=== PATIENT | male | born 1960 | race Caucasian/White ===

== ENCOUNTER 2019-02-09 13:38 | Inpatient (IN) | payer BC, MEDICAID ==
--- NOTE | 2019-02-09 14:16 | ER Document Report ---
ED Medical Screen (RME) - General Stated Complaint: FLANK PAIN/SHORTNESS OF BREATH Time Seen by Provider: 02/09/19 14:08 Mode of Arrival: Ambulatory Information source: Patient Notes: 58-year-old male with history of COPD [place] stents presents emergency department with right upper quad abdominal pain that is radiating to his right flank for the past 2 weeks. Also reports he is been coughing some green sputum. Reports he coughs so hard that he vomits afterwards. Reports he has home oxygen at 1-1 and half liters per minute. Did not bring his oxygen with him. Patient is visiting from [place]. Also reports that when he voids first thing in the morning it is bright red. I have greeted and performed a rapid initial assessment of this patient. A comprehensive ED assessment and evaluation of the patient, analysis of test results and completion of the medical decision making process will be conducted by additional ED providers. Dictation of this chart was performed using voice recognition software; ther efore, there may be some unintended grammatical errors. TRAVEL OUTSIDE OF THE [place] IN LAST 30 DAYS: No - Related Data Allergies/Adverse Reactions: Penicillins Allergy (Verified 02/09/19 14:11) Physical Exam - Vital signs Vitals: Temp Pulse Resp BP Pulse Ox 97.1 F 71 18 108/70 92 02/09/19 13:40 02/09/19 13:40 02/09/19 13:40 02/09/19 13:40 02/09/19 13:40 Course - Vital Signs Vital signs: Temp Pulse Resp BP Pulse Ox 97.1 F 71 18 108/70 92 02/09/19 13:40 02/09/19 13:40 02/09/19 13:40 02/09/19 13:40 02/09/19 13:40
[2019-02-09 14:30] LABS: APPEARANCE,URINE CLEAR; BILIRUBIN,URINE NEGATIVE (NEGATIVE); COLOR,URINE STRAW; GLUCOSE, URINE NEGATIVE (NEGATIVE); KETONES,URINE NEGATIVE (NEGATIVE); LEUKOCYTE ESTERASE,URINE NEGATIVE (NEGATIVE); NITRITE,URINE NEGATIVE (NEGATIVE); PROTEIN,URINE NEGATIVE (NEGATIVE); URINE SPECIFIC GRAVITY 1.002; UROBILINOGEN,URINE NEGATIVE mg/dL (<2.0)
[2019-02-09 14:51] LABS: ABSOLUTE BASOPHILS # (AUTO) 0.1 10^3/uL (0.0-0.2); ABSOLUTE EOSINOPHILS # (AUTO) 0.1 10^3/uL (0.0-0.6); ABSOLUTE LYMPHOCYTES (AUTO) 0.7 10^3/uL (0.5-4.7); ABSOLUTE MONOCYTES (AUTO) 1.1 10^3/uL (0.1-1.4); ABSOLUTE NEUT (AUTO) 5.1 10^3/uL (1.7-8.2); BASOPHILS % (AUTO) 1.1 % (0-2); EOSINOPHILS % (AUTO) 0.8 % (0-6); HEMATOCRIT 34.7 % (37.9-51.0); HEMOGLOBIN 11.7 g/dL (13.5-17.0); LYMPHOCYTES % (AUTO) 10.6 % (13-45); MEAN CORPUSCULAR HEMOGLOBIN 30.3 pg (27.0-33.4); MEAN CORPUSCULAR HGB CONC 33.8 g/dL (32.0-36.0); MEAN CORPUSCULAR VOLUME 90 fl (80-97); MONOCYTES % (AUTO) 15.5 % (3-13); PLATELET COUNT 394 10^3/uL (150-450); RED BLOOD COUNT 3.87 10^6/uL (4.35-5.55); TOTAL CELLS COUNTED % (AUTO) 100 %
[2019-02-09 15:14] LABS: ALBUMIN 2.8 g/dL (3.5-5.0); ALKALINE PHOSPHATASE 132 U/L (38-126); ANION GAP 11 (5-19); ASPARTATE AMINO TRANSFERASE 21 U/L (17-59); BILIRUBIN,DIRECT 0.2 mg/dL (0.0-0.4); BILIRUBIN,TOTAL 0.2 mg/dL (0.2-1.3); BLOOD UREA NITROGEN 8 mg/dL (7-20); CALCIUM 8.3 mg/dL (8.4-10.2); CARBON DIOXIDE 24 mmol/L (22-30); CHLORIDE 103 mmol/L (98-107); GLUCOSE 91 mg/dL (75-110); POTASSIUM 3.7 mmol/L (3.6-5.0); TOTAL PROTEIN 7.3 g/dL (6.3-8.2)
--- NOTE | 2019-02-09 15:21 | RADIOLOGY REPORT (SQ) ---
EXAM DESCRIPTION: CHEST 2 VIEWS COMPLETED DATE/TIME: 02/09/2019 3:08 pm REASON FOR STUDY: COUGH GREEN SPUTUM COMPARISON: None. EXAM PARAMETERS: NUMBER OF VIEWS: two views TECHNIQUE: Digital Frontal and Lateral radiographic views of the chest acquired. RADIATION DOSE: NA LIMITATIONS: none FINDINGS: LUNGS AND PLEURA: Air-fluid levels are present over the right lower lateral hemithorax. T his could be air-fluid levels in bullae or blebs, or along the inferior aspect of the right major fis sure. Consider respiratory isolation for tuberculosis until proven otherwise. This finding was call ed to Nay Collins in the emergency room. Extensive cavitation in the bilateral upper lobes. Mass versus infiltrate along the upper aspect of the right major fissure best shown on lateral view No gross pneumothorax or pleural effusions. MEDIASTINUM AND HILAR STRUCTURES: No masses or contour abnormalities. HEART AND VASCULAR STRUCTURES: Heart normal size. No evidence for failure. BONES: No acute findings. HARDWARE: None in the chest. OTHER: No other significant finding. IMPRESSION: Markedly abnormal chest film, with air-fluid levels over the right lateral lower hemitho rax, either in lung bullae or blebs, or possibly along the major fissure. Cavitation in the bilatera l upper lobes. Tuberculosis could not be excluded. Findings called to the emergency room practitio inderjit as above TECHNICAL DOCUMENTATION: JOB ID: [id number] [employer]- All Rights Reserved Reading location - IP/workstation name: [email or web address]
--- NOTE | 2019-02-09 16:46 | RADIOLOGY REPORT (SQ) ---
EXAM DESCRIPTION: U/S ABDOMEN COMPLETE W/O DOP COMPLETED DATE/TIME: 02/09/2019 4:26 pm REASON FOR STUDY: RUQ PAIN AND FLANK PAIN COMPARISON: None. TECHNIQUE: Dynamic and static grayscale images acquired of the abdomen and recorded on PACS. Additio nal selected color Doppler and spectral images recorded. Note: Study does not meet criteria for complete doppler/duplex scan LIMITATIONS: None. FINDINGS: PANCREAS: No masses. Visualized pancreatic duct normal caliber. LIVER: No masses. Echotexture normal. LIVER VASCULATURE: Normal directional flow of the main portal vein and hepatic veins. GALLBLADDER: 1.2 cm stone. Normal wall thickness. No pericholecystic fluid. ULTRASOUND-DETECTED KRAUS'S SIGN: Negative. INTRAHEPATIC DUCTS AND COMMON DUCT: CBD and intrahepatic ducts normal caliber. No filling defects. INFERIOR VENA CAVA: Normal flow. AORTA: No aneurysm. RIGHT KIDNEY:Normal size. Normal echogenicity. No solid or suspicious masses. No hydronephrosis. No c alcifications. LEFT KIDNEY: Normal size. Normal echogenicity. No solid or suspicious masses. No hydronephrosis. No calcifications. SPLEEN: Normal size. No solid masses. PERITONEAL AND PLEURAL SPACES: No ascites or effusions. OTHER: Bladder nonvisualized. IMPRESSION: Gallstone. No acute inflammatory changes. No free fluid. TECHNICAL DOCUMENTATION: JOB ID: [id number] [place]-72 2010 [employer]- All Rights Reserved Reading location - IP/workstation name: [email or web address]
[2019-02-09] MEDS ORDERED: IPRATROPIUM/ALBUTEROL 0.5-2.5 MG/3 ML AMPUL NEB ONE (17:07)
[2019-02-09] MEDS ORDERED: LEVOFLOXACIN 750 MG/D5W RTU 150 ML IV ONE (17:07)
[2019-02-09] MEDS ORDERED: METHYLPREDNISOLONE INJ 125 MG/2 ML SDV IV ONE (17:19)
--- NOTE | 2019-02-09 17:19 | ER Document Report ---
ED General - General Chief Complaint: Rib Pain Stated Complaint: FLANK PAIN/SHORTNESS OF BREATH Time Seen by Provider: 02/09/19 14:08 Mode of Arrival: Ambulatory TRAVEL OUTSIDE OF THE [place] IN LAST 30 DAYS: No - HPI Notes: This is a 58-year-old gentleman who presents today with a complaint of cough, congestion, dyspnea, flank pain for several weeks now. He denies any weight los s. He has had some night sweats. He denies any hemoptysis. His cough is sometimes productive of clear sputum. He describes his symptoms as mild to moderate. Patient has oxygen dependent COPD. - Related Data Allergies/Adverse Reactions: Penicillins Allergy (Verified 02/09/19 14:11) Past Medical History - General Information source: Patient - Social History Smoking Status: Current Every Day Smoker Chew tobacco use (# tins/day): No Frequency of alcohol use: Heavy Drug Abuse: None Family History: Reviewed & Not Pertinent Patient has suicidal ideation: No Patient has homicidal ideation: No Review of Systems - Review of Systems Cardiovascular: denies: Palpitations, Heart racing Respiratory: Cough, Sputum, Wheezing. denies: Hemoptysis Gastrointestinal: Abdominal pain Genitourinary: Flank pain Neurological/Psychological: denies: Weakness -: Yes All other systems reviewed and negative Physical Exam - Vital signs Vitals: Temp Pulse Resp BP Pulse Ox 97.1 F 71 18 108/70 92 02/09/19 13:40 02/09/19 13:40 02/09/19 13:40 02/09/19 13:40 02/09/19 13:40 - General General appearance: Appears well, Alert - Respiratory Respiratory status: No respiratory distress Chest status: Nontender Breath sounds: Rhonchi, Wheezing Chest palpation: Normal - Cardiovascular Rhythm: Regular Heart sounds: Normal auscultation Murmur: No - Abdominal Inspection: Normal Distension: No distension Bowel sounds: Normal Tenderness: Tender - There is slight right upper quadrant tenderness. No guarding or rebound. Organomegaly: No organomegaly - Extremities General upper extremity: Normal inspection, Nontender, Normal color, Normal ROM, Normal temperature General lower extremity: Normal inspection, Nontender, Normal color, Normal ROM, Normal temperature, Normal weight bearing. No: Lizbeth's sign - Neurological Neuro grossly intact: Yes Cognition: Normal Orientation: AAOx4 [place] Coma Scale Eye Opening: Spontaneous [place] Coma Scale Verbal: Oriented [place] Coma Scale Motor: Obeys Commands [place] Coma Scale Total: 15 Speech: Normal Motor strength normal: LUE, RUE, LLE, RLE Sensory: Normal - Psychological Associated symptoms: Normal affect, Normal mood - Skin Skin Temperature: Warm Skin Moisture: Dry Skin Color: Normal Course - Re-evaluation Re-evalutation: 02/09/19 17:21 Differential diagnosis includes pulmonary tuberculosis versus pneumonia versus lung mass versus unlikely PE with infarct. Will get CTA given grossly abnormal chest x-ray. 1715 Patient's care discussed with Zacarias Ba, hospitalist service. Will admit. We will do AFB sputum test in house. I will cover him with Levaquin for possible pneumonia. - Vital Signs Vital signs: Temp Pulse Resp BP Pulse Ox 97.1 F 71 18 108/70 92 02/09/19 13:40 02/09/19 13:40 02/09/19 13:40 02/09/19 13:40 02/09/19 13:40 - Laboratory Result Diagrams: 02/09/19 14:33 02/09/19 14:33 Laboratory results interpreted by me: 02/09/19 02/09/19 14:33 14:33 RBC 3.87 L Hgb 11.7 L Hct 34.7 L RDW 17.0 H Lymph % (Auto) 10.6 L Smyth % (Auto) 15.5 H Calcium 8.3 L Alkaline Phosphatase 132 H Albumin 2.8 L Discharge - Discharge Clinical Impression: Pulmonary cavitary lesion Pneumonia Qualifiers: Pneumonia type: due to unspecified organism Laterality: unspecified laterality Lung location: unspecified part of lung Qualified Code(s): J18.9 - Pneumonia, unspecified organism Disposition: ADMITTED INPATIENT Admitting Provider: Jeffery (Hospitalist) Unit Admitted: Medical Floor
[2019-02-09] MEDS ORDERED: ACETAMINOPHEN 325 MG TABLET PO PRN (17:31)
[2019-02-09] MEDS ORDERED: ONDANSETRON HCL INJ/PF 4 MG/2 ML SDV IV PRN (17:31)
[2019-02-09] MEDS ORDERED: ALBUTEROL SULFATE 0.083% NEB 2.5 MG/3 ML AMPUL NEB PRN (17:31)
[2019-02-09] MEDS ORDERED: MAG HYDROX/AL HYDROX/SIMETH SUSP 30 ML UDCUP PO PRN (17:31)
[2019-02-09] MEDS ORDERED: NORMAL SALINE 1000 ML 1,000 ML IV PRN (17:31)
[2019-02-09] MEDS ORDERED: GUAIFENESIN/CODEINE PHOS 100-10 MG/ 5 ML UDC PO PRN (17:44)
[2019-02-09] MEDS ORDERED: VANCOMYCIN HCL 0 MG in DEXTROSE 5%-WATER 250 ML IV NR (17:45)
[2019-02-09] MEDS ORDERED: TUBERCULIN,PURIF.PROT.DERIV. 5 TU/0.1 ML TEST 1 ML VIAL ID ONE ×2 (17:45→18:24)
--- NOTE | 2019-02-09 17:53 | PDOC H&P ---
History of Present Illness Admission Date/PCP: 02/09/2019 Unknown primary care Patient complains of: Shortness of breath, cough, right flank pain History of Present Illness: ALEXANDRO HUBBARD is a 58 year old male with known history of oxygen dependent COPD who states for the last several weeks he has had complaints of cough, congestion, dyspnea and flank pain in the right. He denies any weight loss although he has had some night sweats intermittently. He denies any hemoptysis. His cough is sometimes productive of clear sputum and he describes his symptoms as mild to moderate. Patient states he did have cavitary lesions last year which tested negative for TB. Patient had no treatment prior to arrival all activities aggravating factor. Past Medical History Pulmonary Medical History: Reports: Chronic Obstructive Pulmonary Disease (COPD) Pulmonary History Note: Cavitary lesions 1 year ago Past Surgical History Past Surgical History: Reports: None Social History Information Source: Patient Lives with: Family Smoking Status: Current Every Day Smoker Cigarettes Packs Per Day: 1 Frequency of Alcohol Use: None Hx Recreational Drug Use: No Drugs: None Hx Prescription Drug Abuse: No - Advance Directive Resuscitation Status: Full Code Family History Family History: Hypertension Parental Family History Reviewed: Yes Children Family History Reviewed: Yes Sibling(s) Family History Reviewed.: Yes Medication/Allergy Allergies/Adverse Reactions: Penicillins Allergy (Verified 02/09/19 14:11) Review of Systems Constitutional: PRESENT: night sweats. ABSENT: chills, fever(s), headache(s), weight gain, weight loss Eyes: ABSENT: visual disturbances Ears: ABSENT: hearing changes Cardiovascular: ABSENT: chest pain, dyspnea on exertion, edema, orthropnea, palpitations Respiratory: PRESENT: cough, dyspnea, sputum. ABSENT: hemoptysis Gastrointestinal: ABSENT: abdominal pain, constipation, diarrhea, hematemesis, hematochezia, nausea, vomiting Genitourinary: ABSENT: dysuria, hematuria Musculoskeletal: ABSENT: joint swelling Integumentary: ABSENT: rash, wounds Neurological: ABSENT: abnormal gait, abnormal speech, confusion, dizziness, focal weakness, syncope Psychiatric: ABSENT: anxiety, depression, homidical ideation, suicidal ideation Endocrine: ABSENT: cold intolerance, heat intolerance, polydipsia, polyuria Hematologic/Lymphatic: ABSENT: easy bleeding, easy bruising Physical Exam Vital Signs: Temp Pulse Resp BP Pulse Ox 97.1 F 71 18 108/70 92 02/09/19 13:40 02/09/19 13:40 02/09/19 13:40 02/09/19 13:40 02/09/19 13:40 Intake & Output 02/08/19 02/09/19 02/10/19 06:59 06:59 06:59 Weight 57.8 kg General appearance: PRESENT: no acute distress, well-developed, well-nourished Head exam: PRESENT: atraumatic, normocephalic Eye exam: PRESENT: conjunctiva pink, EOMI, PERRLA. ABSENT: scleral icterus Ear exam: PRESENT: normal external ear exam Mouth exam: PRESENT: moist, tongue midline Neck exam: ABSENT: carotid bruit, JVD, lymphadenopathy, thyromegaly Respiratory exam: PRESENT: decreased breath sounds, symmetrical, tachypnea, unlabored, wheezes. ABSENT: rales, rhonchi Cardiovascular exam: PRESENT: RRR. ABSENT: diastolic murmur, rubs, systolic murmur Pulses: PRESENT: normal dorsalis pedis pul Vascular exam: PRESENT: normal capillary refill GI/Abdominal exam: PRESENT: normal bowel sounds, soft. ABSENT: distended, guarding, mass, organolmegaly, rebound, tenderness Rectal exam: PRESENT: deferred Extremities exam: PRESENT: full ROM. ABSENT: calf tenderness, clubbing, pedal edema Neurological exam: PRESENT: alert, awake, oriented to person, oriented to place, oriented to time, oriented to situation, CN II-XII grossly intact. ABSENT: motor sensory deficit Psychiatric exam: PRESENT: appropriate affect, normal mood. ABSENT: homicidal ideation, suicidal ideation Skin exam: PRESENT: dry, intact, warm. ABSENT: cyanosis, rash Results Laboratory Results: 02/09/19 14:33 02/09/19 14:33 02/09/19 02/09/19 02/09/19 13:45 14:33 14:33 WBC 7.0 RBC 3.87 L Hgb 11.7 L Hct 34.7 L MCV 90 MCH 30.3 MCHC 33.8 RDW 17.0 H Plt Count 394 Seg Neutrophils % 72.0 Sodium 138.3 Potassium 3.7 Chloride 103 Carbon Dioxide 24 Anion Gap 11 BUN 8 Creatinine 0.62 Est GFR ( Amer) > 60 Glucose 91 Calcium 8.3 L Total Bilirubin 0.2 AST 21 Alkaline Phosphatase 132 H Total Protein 7.3 Albumin 2.8 L Lipase 33.2 Urine Color STRAW Urine Appearance CLEAR Urine pH 6.0 Ur Specific [place] 1.002 Urine Protein NEGATIVE Urine Glucose (UA) NEGATIVE Urine Ketones NEGATIVE Urine Blood NEGATIVE Urine Nitrite NEGATIVE Ur Leukocyte Esterase NEGATIVE Impressions: Chest X-Ray 02/09/19 14:14 IMPRESSION: Markedly abnormal chest film, with air-fluid levels over the right lateral lower hemithorax, either in lung bullae or blebs, or possibly along the major fissure. Cavitation in the bilateral upper lobes. Tuberculosis could not be excluded. Findings called to the emergency room practitioner as above Abdomen Ultrasound 02/09/19 14:16 IMPRESSION: Gallstone. No acute inflammatory changes. No free fluid. Assessment and Plan - Diagnosis (1) Pulmonary cavitary lesion Is this a current diagnosis for this admission?: Yes Plan: 02/09/2019-at this time will place patient in airborne isolation. Will place a PPD and obtain AFBs, sputum cultures and QuantiFERON. Will consult ID tomorrow as well as Dr. Cononrs for further evaluation and possible bronchoscopy. Patient states he had a cavitation in the last year and it was not TB thus I will not start treatment at this time. I will treat him for pneumonia however. (2) Pneumonia Qualifiers: Pneumonia type: due to unspecified organism Laterality: unspecified laterality Lung location: unspecified part of lung Qualified Code(s): J18.9 - Pneumonia, unspecified organism Is this a current diagnosis for this admission?: Yes Plan: 02/09/2019-with patient's penicillin allergy I will give him vancomycin per pharmacy dosing, Azeotranam 2 g IV every 8 hours, and Levaquin 750 mg IV daily. Will await blood cultures and sputum cultures for offending organism may change plan of care as appropriate. (3) Acute exacerbation of chronic obstructive pulmonary disease (COPD) Is this a current diagnosis for this admission?: Yes Plan: 02/09/2019-bronchodilators, IV steroids and IV antibiotics. Will give supplemental oxygen as needed and other supportive measures. (4) Anemia Is this a current diagnosis for this admission?: Yes Plan: 02/09/2019-seem to be chronic in nature we will continue to follow daily CBCs (5) Cough Is this a current diagnosis for this admission?: Yes Plan: 02/09/[id number]-[id number] 5 mL's every 6 hours as needed - Time Time Spent with patient: 35 or more minutes - Inpatient Certification Based on my medical assessment, after consideration of the patient's comorbidities, presenting symptoms, or acuity I expect that the services needed warrant INPATIENT care.: Yes I certify that my determination is in accordance with my understanding of Medicare's requirements for reasonable and necessary INPATIENT services [42 CFR 412.3e].: Yes Medical Necessity: Other - IV antibiotics, isolation
[2019-02-09] MEDS ORDERED: VANCOMYCIN HCL INJ 1000 MG VIAL IV PRN (17:54)
[2019-02-09] MEDS: LEVOFLOXACIN 750 MG/D5W RTU 750 MG/150 ML RTUPB IV SCH (18:29)
[2019-02-09] MEDS: METHYLPREDNISOLONE INJ 40 MG/1 ML SDV IV SCH (18:29)
[2019-02-09] MEDS ORDERED: AZTREONAM INJ 1 GM VIAL IV ONE (19:00)
--- NOTE | 2019-02-09 19:46 | RADIOLOGY REPORT (SQ) ---
EXAM DESCRIPTION: CTA CHEST COMPLETED DATE/TIME: 02/09/2019 6:25 pm REASON FOR STUDY: cavitary lesions, dyspnea. ? PE vs TB vs mass COMPARISON: Earlier chest radiograph TECHNIQUE: CT scan of the chest performed using helical scanning technique with dynamic intravenous contrast injection. Images reviewed with lung, soft tissue and bone windows. Reconstructed coronal and sagittal MPR images reviewed. Additional 3 dimensional post-processing performed to develop Maximal Intensity Projection images (WA P). All images stored on PACS. All CT scanners at this facility use dose modulation, iterative reconstruction, and/or weight based d osing when appropriate to reduce radiation dose to as low as reasonably achievable (ALARA). [facility]: Dose Right [facility]: CareDose [facility]: Dose Right [facility]: Teradose 4D [facility]: GadgetATM CONTRAST TYPE AND DOSE: contrast/concentration: Isovue 350.00 mg/ml; Total Contrast Delivered: 51.0 ml; Total Saline Delivered: 75.0 ml Contrast bolus optimized for the pulmonary arteries. Not diagnostic for the aorta. RENAL FUNCTION: GFR > 60. RADIATION DOSE: CT Rad equipment meets quality standard of care and radiation dose reduction techniq ues were employed. CTDIvol: 3.3 - 14.3 mGy. DLP: 607 mGy-cm. . LIMITATIONS: None. FINDINGS: LUNGS AND PLEURA: Large cavitary lesions are present in both upper lobes. There is diffus e architectural distortion throughout both lungs with bronchiectasis and severe emphysema. There is a large cavitary lesion in the anterior aspect of the right lower lobe with multiple air-fluid levels , this measures approximately 10 cm in diameter. Numerous pulmonary nodules are present in both lung s, largest concentration in the right lower lobe posterior segment. There is a small right pleural e ffusion with some loculated components posteriorly. No pneumothorax identified AORTA AND GREAT VESSELS: No aneurysm. Contrast bolus not optimized for the aorta. HEART: No pericardial effusion. Mild coronary artery calcifications. PULMONARY ARTERIES: No emboli visualized in the main pulmonary arteries or the segmental branches. HILAR AND MEDIASTINAL STRUCTURES: Multiple enlarged nodes, 1.2 cm largest dimension appear HARDWARE: None in the chest. UPPER ABDOMEN: No acute findings. Limited exam. THYROID AND OTHER SOFT TISSUES: No masses. No adenopathy. BONES: No acute finding. 3D MIPS: Confirm above findings. OTHER: No other significant finding. IMPRESSION: Multiple cavitary lesions, some with air-fluid levels. Mycobacterial disease is a melissa rn given the appearance. Fungal or Bacterial superimposed disease is also a possibility. Malignancy is not excluded. There is diffuse architectural distortion throughout both lungs with bronchiectasis and severe emphysema. No emboli visualized in the main pulmonary arteries or the segmental branches. COMMENT: Pulmonary consultation recommended. Quality ID # [id number]: Final reports with documentation of one or more dose reduction techniques (e.g., Au tomated exposure control, adjustment of the mA and/or kV according to patient size, use of iterative reconstruction technique) TECHNICAL DOCUMENTATION: JOB ID: [id number] [place]-72 2010 [employer]- All Rights Reserved Reading location - IP/workstation name: [email or web address]
[2019-02-09] MEDS ORDERED: AZTREONAM INJ 1 GM VIAL ONE (20:55)
[2019-02-09] MEDS ORDERED: VANCOMYCIN HCL 1,000 MG in DEXTROSE 5%-WATER 250 ML IV ONE (21:00)
[2019-02-09] MEDS ORDERED: NICOTINE 21 MG/24 HR PATCH.TD24 ONE (21:11)
[2019-02-09] MEDS: OXYCODONE-ACETAMINOPHEN 5-325 MG TABLET PO PRN (21:16)
[2019-02-09] MEDS: HEPARIN SOD (PORCINE) 5,000 UNIT/ML 1 ML VIAL SUBCUT SCH (21:16)
[2019-02-09] MEDS ORDERED: CHLORPROMAZINE HCL INJ 25 MG/1 ML AMPULE IV PRN (22:39)
[2019-02-10] MEDS ORDERED: AZTREONAM INJ 1 GM VIAL IV PRN (02:00)
[2019-02-10] MEDS: METHYLPREDNISOLONE INJ 40 MG/1 ML SDV IV SCH ×3 (02:13→17:24)
[2019-02-10] MEDS: ZOLPIDEM TARTRATE 5 MG TABLET PO PRN ×2 (02:19→20:49)
[2019-02-10] MEDS: OXYCODONE-ACETAMINOPHEN 5-325 MG TABLET PO PRN ×4 (02:19→23:04)
[2019-02-10] MEDS: AZTREONAM 2 GM in DEXTROSE 5%-WATER 100 ML IV SCH ×4 (05:14→23:04)
[2019-02-10] MEDS: HEPARIN SOD (PORCINE) 5,000 UNIT/ML 1 ML VIAL SUBCUT SCH ×3 (06:28→23:04)
[2019-02-10] MEDS: IPRATROPIUM/ALBUTEROL 0.5-2.5 MG/3 ML AMPUL NEB SCH ×2 (07:59→20:08)
[2019-02-10] MEDS: NICOTINE 21 MG/24 HR PATCH.TD24 TD SCH (09:32)
[2019-02-10 10:13] LABS: HEMATOCRIT 36.2 % (37.9-51.0); HEMOGLOBIN 12.2 g/dL (13.5-17.0); MEAN CORPUSCULAR HEMOGLOBIN 30.4 pg (27.0-33.4); MEAN CORPUSCULAR HGB CONC 33.6 g/dL (32.0-36.0); MEAN CORPUSCULAR VOLUME 90 fl (80-97); PLATELET COUNT 381 10^3/uL (150-450); RED BLOOD COUNT 4.01 10^6/uL (4.35-5.55); RED CELL DISTRIBUTION WIDTH 16.9 % (11.5-14.0); WHITE BLOOD COUNT 6.6 10^3/uL (4.0-10.5)
[2019-02-10 10:26] LABS: ANION GAP 8 (5-19); BLOOD UREA NITROGEN 10 mg/dL (7-20); CALCIUM 8.3 mg/dL (8.4-10.2); CARBON DIOXIDE 25 mmol/L (22-30); CHLORIDE 102 mmol/L (98-107); GLUCOSE 283 mg/dL (75-110); PHOSPHORUS 3.3 mg/dL (2.5-4.5); POTASSIUM 3.6 mmol/L (3.6-5.0)
--- NOTE | 2019-02-10 10:34 | PDOC PROGRESS REPORT ---
Subjective Progress Note for:: 02/10/19 Subjective:: 02/10/2019-cough Reason For Visit: CAVITARY LUNG LESIONS, PNEUMONIA Physical Exam Vital Signs: Temp Pulse Resp BP Pulse Ox 98.8 F 48 L 16 110/64 91 L 02/10/19 00:00 02/10/19 07:59 02/10/19 07:59 02/10/19 00:00 02/10/19 07:59 Intake & Output 02/09/19 02/10/19 02/11/19 06:59 06:59 06:59 Intake Total 400 Output Total 500 Balance -100 Weight 111.2 kg General appearance: PRESENT: no acute distress Neck exam: ABSENT: carotid bruit, JVD, lymphadenopathy, thyromegaly Respiratory exam: PRESENT: decreased breath sounds, rhonchi, symmetrical, tachypnea, unlabored. ABSENT: rales, wheezes Cardiovascular exam: PRESENT: RRR. ABSENT: diastolic murmur, rubs, systolic murmur Pulses: PRESENT: normal dorsalis pedis pul Vascular exam: PRESENT: normal capillary refill GI/Abdominal exam: PRESENT: normal bowel sounds, soft. ABSENT: distended, guarding, mass, organolmegaly, rebound, tenderness Extremities exam: PRESENT: full ROM. ABSENT: calf tenderness, clubbing, pedal edema Neurological exam: PRESENT: alert, awake, oriented to person, oriented to place, oriented to time, oriented to situation, CN II-XII grossly intact. ABSENT: motor sensory deficit Psychiatric exam: PRESENT: appropriate affect, normal mood. ABSENT: homicidal ideation, suicidal ideation Skin exam: PRESENT: dry, intact, warm. ABSENT: cyanosis, rash Results Laboratory Results: 02/09/19 02/09/19 02/09/19 13:45 14:33 14:33 WBC 7.0 RBC 3.87 L Hgb 11.7 L Hct 34.7 L MCV 90 MCH 30.3 MCHC 33.8 RDW 17.0 H Plt Count 394 Seg Neutrophils % 72.0 Sodium 138.3 Potassium 3.7 Chloride 103 Carbon Dioxide 24 Anion Gap 11 BUN 8 Creatinine 0.62 Est GFR ( Amer) > 60 Glucose 91 Calcium 8.3 L Total Bilirubin 0.2 AST 21 Alkaline Phosphatase 132 H Total Protein 7.3 Albumin 2.8 L Lipase 33.2 Urine Color STRAW Urine Appearance CLEAR Urine pH 6.0 Ur Specific [place] 1.002 Urine Protein NEGATIVE Urine Glucose (UA) NEGATIVE Urine Ketones NEGATIVE Urine Blood NEGATIVE Urine Nitrite NEGATIVE Ur Leukocyte Esterase NEGATIVE 02/10/19 09:52 WBC RBC Hgb Hct MCV MCH MCHC RDW Plt Count Seg Neutrophils % Not Reportable Sodium Potassium Chloride Carbon Dioxide Anion Gap BUN Creatinine Est GFR ( Amer) Glucose Calcium Total Bilirubin AST Alkaline Phosphatase Total Protein Albumin Lipase Urine Color Urine Appearance Urine pH Ur Specific [place] Urine Protein Urine Glucose (UA) Urine Ketones Urine Blood Urine Nitrite Ur Leukocyte Esterase Impressions: Chest X-Ray 02/09/19 14:14 IMPRESSION: Markedly abnormal chest film, with air-fluid levels over the right lateral lower hemithorax, either in lung bullae or blebs, or possibly along the major fissure. Cavitation in the bilateral upper lobes. Tuberculosis could not be excluded. Findings called to the emergency room practitioner as above Abdomen Ultrasound 02/09/19 14:16 IMPRESSION: Gallstone. No acute inflammatory changes. No free fluid. Chest/Abdomen CTA 02/09/19 17:15 IMPRESSION: Multiple cavitary lesions, some with air-fluid levels. Mycobacterial disease is a concern given the appearance. Fungal or Bacterial superimposed disease is also a possibility. Malignancy is not excluded. There is diffuse architectural distortion throughout both lungs with bronchiectasis and severe emphysema. No emboli visualized in the main pulmonary arteries or the segmental branches. Assessment and Plan - Diagnosis (1) Pulmonary cavitary lesion Is this a current diagnosis for this admission?: Yes Plan: 02/09/2019-at this time will place patient in airborne isolation. Will place a PPD and obtain AFBs, sputum cultures and QuantiFERON. Will consult ID tomorrow as well as Dr. Connors for further evaluation and possible bronchoscopy. Patient states he had a cavitation in the last year and it was not TB thus I will not start treatment at this time. I will treat him for pneumonia however. 02/10/2019-continue airborne isolation. Await PPD AFBs. QuantiFERON. Will consult Dr. Connors for evaluation and treatment today. Continue IV vancomycin, azeotranam and Levaquin (2) Pneumonia Qualifiers: Pneumonia type: due to unspecified organism Laterality: unspecified laterality Lung location: unspecified part of lung Qualified Code(s): J18.9 - Pneumonia, unspecified organism Is this a current diagnosis for this admission?: Yes Plan: 02/09/2019-with patient's penicillin allergy I will give him vancomycin per pharmacy dosing, Azeotranam 2 g IV every 8 hours, and Levaquin 750 mg IV daily. Will await blood cultures and sputum cultures for offending organism may change plan of care as appropriate. 02/10/2019-continue IV antibiotics await cultures. Supportive care as needed. (3) Acute exacerbation of chronic obstructive pulmonary disease (COPD) Is this a current diagnosis for this admission?: Yes Plan: 02/09/2019-bronchodilators, IV steroids and IV antibiotics. Will give supplemental oxygen as needed and other supportive measures. 02/10/2019-continue bronchodilators, IV steroids and IV antibiotics. Supplemental oxygen and other supportive measures as needed (4) Anemia Is this a current diagnosis for this admission?: Yes Plan: 02/09/2019-seem to be chronic in nature we will continue to follow daily CBCs 02/10/2019-awaiting a.m. labs. (5) Cough Is this a current diagnosis for this admission?: Yes Plan: 02/09/[id number]-RJ 5 mL's every 6 hours as needed 02/10/2019-continue Robitussin as needed. - Time Time Spent with patient: 15-24 minutes - Inpatient Certification Based on my medical assessment, after consideration of the patient's comorbidities, presenting symptoms, or acuity I expect that the services needed warrant INPATIENT care.: Yes I certify that my determination is in accordance with my understanding of Medicare's requirements for reasonable and necessary INPATIENT services [42 CFR 412.3e].: Yes Medical Necessity: Other - IV advice, airborne isolation
[2019-02-10 10:38] LABS: ABSOLUTE LYMPHOCYTES# (MANUAL) 0.3 10^3/uL (0.5-4.7); ABSOLUTE MONOCYTES # (MANUAL) 0.2 10^3/uL (0.1-1.4); BAND NEUTROPHILS % (MANUAL) 2 % (3-5); BASOPHILS % (MANUAL) 0 % (0-2); EOSINOPHILS % (MANUAL) 0 % (0-6); LYMPHOCYTES % (MANUAL) 5 % (13-45); METAMYELOCYTES % (MANUAL) 1 % (0); MONOCYTES % (MANUAL) 3 % (3-13); SEGMENTED NEUTROPHILS % (MAN) 89 % (42-78); TOTAL CELLS COUNTED 100
[2019-02-10 10:39] LABS: ANISOCYTOSIS 1+; PLATELET COMMENT ADEQUATE
[2019-02-10] MEDS: DIAZEPAM INJ 10 MG/2 ML DISP.SYRIN IV PRN ×2 (12:40→23:04)
[2019-02-10] MEDS: VANCOMYCIN HCL 1,250 MG in DEXTROSE 5%-WATER 250 ML IV SCH ×2 (12:41→20:49)
--- NOTE | 2019-02-10 13:54 | PDOC CONSULTATION ---
Consultation Consult Date: 02/10/19 Attending physician:: VARUN UP Provider Consulted: LEILA GALINDO Consult reason:: cavitary lung lesion History of Present Illness Admission Date/PCP: 02/09/19 17:58 RITA GANT MD History of Present Illness: ALEXANDRO HUBBARD is a 58 year old male, presented to the emergency room with increasing shortness of breath and cross cough productive of yellowish-green phlegm he denies hemoptysis his PPD was negative dates unknown he has no history of chronic lung disease as a child or adolescent he admits to exposure to large amounts of passive smoke as a child as well as an adult. He is recently moved here from [place]. He admits to smoking 3 packs a day for 45 years but is currently down to 1 pack/day. 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 He has 1 dog has occasional tightness in his chest sleeps on 2 pillows occasional PND occasional nocturnal cough denies edema admits to restless sleep nocturia x3 unrestful sleep and daytime somnolence. Past Medical History Cardiac Medical History: Reports: Coronary Artery Disease - M I x3 Pulmonary Medical History: Reports: Chronic Obstructive Pulmonary Disease (COPD) EENT Medical History: Reports: None Neurological Medical History: Reports: None Endocrine Medical History: Reports: None Renal/ Medical History: Reports: None Malignancy Medical History: Reports: None GI Medical History: Denies: Cirrhosis, Crohn's Disease, Ulcerative Colitis Musculoskeltal Medical History: Denies: Gout Skin Medical History: Denies: Psoriasis Psychiatric Medical History: Reports: Depression, Tobacco Dependency Traumatic Medical History: Denies: Traumatic Brain Injury Hematology: Denies: Hemophilia, Sickle Cell Disease Infectious Medical History: Denies: HIV Past Surgical History Past Surgical History: Reports: None, Other - Coronary arteries stents x3 Social History Lives with: Family Smoking Status: Current Every Day Smoker Cigarettes Packs Per Day: 3 Number of Years Smokin Passive smoke exposure as: Both Frequency of Alcohol Use: Heavy Hx Recreational Drug Use: No Drugs: None Hx Prescription Drug Abuse: No Do you have pets?: Yes Have you had any respiratory illnesses as a child?: No Have you been exposed to any sick contacts recently?: No Have you had any recent respiratory illnesses?: No Have you travelled outside of [place] in the past 12 months?: Yes - Advance Directive Resuscitation Status: Full Code Family History Family History: CAD, Hypertension Parental Family History Reviewed: Yes Children Family History Reviewed: Yes Sibling(s) Family History Reviewed.: Yes Medication/Allergy Home Medications: Acetaminophen [Tylenol Extra Strength 500 mg Tablet] 1 tab PO DAILYP PRN 02/10/19 Bupropion HCl [Wellbutrin Sr 150 mg Tablet] 1 tab PO DAILY 02/10/19 Fluticasone/Salmeterol [Fluticasone-Salmeterol 113-14] 1 inh PO BID 02/10/19 Gabapentin 600 mg PO TID 02/10/19 Hydroxyzine HCl [Atarax 50 mg Tablet] 50 mg PO Q6H 02/10/19 Ipratropium [place] [Atrovent 0.06% Nasal [place]] 1 dose NASL DAILY 02/10/19 Meloxicam [Mobic] 7.5 mg PO DAILY 02/10/19 Olodaterol HCl [[place]riverdi Respimat] 1 inh PO DAILY 02/10/19 Sumatriptan Succinate [Imitrex 25 mg Tablet] 25 mg PO ASDIR PRN 02/10/19 Tizanidine HCl 4 mg PO BID 02/10/19 Umeclidinium [place] [Incruse Ellipta] 1 inh PO DAILY 02/10/19 Allergies/Adverse Reactions: Penicillins Allergy (Verified 02/09/19 14:11) Review of Systems Constitutional: PRESENT: weight loss - 50 pounds in the last 12 months. ABSENT: chills, fatigue, headache(s) Eyes: ABSENT: visual disturbances Ears: ABSENT: hearing changes Nose, Mouth, and Throat: ABSENT: mouth pain, sore throat Cardiovascular: PRESENT: chest pain, dyspnea on exertion. ABSENT: edema, orthropnea, palpitations Respiratory: PRESENT: cough, dyspnea, sputum Gastrointestinal: PRESENT: abdominal pain, diarrhea, dysphagia, melena, nausea. ABSENT: bloating, coffee ground emesis, constipation Genitourinary: PRESENT: nocturia. ABSENT: dysuria, hematuria Musculoskeletal: ABSENT: joint swelling, muscle weakness Integumentary: ABSENT: pruritus, rash Neurological: ABSENT: abnormal gait, abnormal movements, abnormal speech, confusion, focal weakness, frequent falls, lack of coordination, memory loss, numbness Psychiatric: ABSENT: hallucinations, homidical ideation, suicidal ideation Endocrine: ABSENT: cold intolerance, heat intolerance, polydipsia, polyuria Physical Exam Vital Signs: Temp Pulse Resp BP Pulse Ox 98.8 F 48 L 16 110/64 91 L 02/10/19 00:00 02/10/19 07:59 02/10/19 07:59 02/10/19 00:00 02/10/19 07:59 Intake & Output 02/09/19 02/10/19 02/11/19 06:59 06:59 06:59 Intake Total 400 Output Total 500 Balance -100 Weight 111.2 kg General appearance: PRESENT: no acute distress, cooperative, disheveled, obese, well-developed, well-nourished Head exam: PRESENT: atraumatic, normocephalic Eye exam: PRESENT: conjunctiva pale, EOMI. ABSENT: nystagmus, periorbital swelling Mouth exam: PRESENT: moist, neck supple, tongue midline Teeth exam: PRESENT: edentulous Neck exam: ABSENT: carotid bruit, full ROM, JVD, lymphadenopathy, meningismus, tenderness, thyromegaly, tracheal deviation, tracheostomy, other Respiratory exam: PRESENT: decreased breath sounds, prolonged expiratory phas, rales, rhonchi, symmetrical, unlabored, wheezes. ABSENT: retraction, stridor, tachypnea Cardiovascular exam: PRESENT: RRR, +S1, +S2. ABSENT: tachycardia Pulses: PRESENT: normal radial pulses GI/Abdominal exam: PRESENT: soft. ABSENT: distended, guarding, mass, rebound, tenderness Extremities exam: ABSENT: calf tenderness, clubbing, joint swelling Musculoskeletal exam: ABSENT: deformity, dislocation Neurological exam: PRESENT: alert, awake Psychiatric exam: PRESENT: appropriate affect Skin exam: PRESENT: dry, warm Results Laboratory Results: 02/10/19 09:52 02/10/19 09:52 02/09/19 02/09/19 02/09/19 13:45 14:33 14:33 WBC 7.0 RBC 3.87 L Hgb 11.7 L Hct 34.7 L MCV 90 MCH 30.3 MCHC 33.8 RDW 17.0 H Plt Count 394 Seg Neutrophils % 72.0 Sodium 138.3 Potassium 3.7 Chloride 103 Carbon Dioxide 24 Anion Gap 11 BUN 8 Creatinine 0.62 Est GFR ( Amer) > 60 Glucose 91 Calcium 8.3 L Phosphorus Magnesium Total Bilirubin 0.2 AST 21 Alkaline Phosphatase 132 H Total Protein 7.3 Albumin 2.8 L Lipase 33.2 Urine Color STRAW Urine Appearance CLEAR Urine pH 6.0 Ur Specific [place] 1.002 Urine Protein NEGATIVE Urine Glucose (UA) NEGATIVE Urine Ketones NEGATIVE Urine Blood NEGATIVE Urine Nitrite NEGATIVE Ur Leukocyte Esterase NEGATIVE 02/10/19 02/10/19 09:52 09:52 WBC 6.6 RBC 4.01 L Hgb 12.2 L Hct 36.2 L MCV 90 MCH 30.4 MCHC 33.6 RDW 16.9 H Plt Count 381 Seg Neutrophils % Not Reportable Sodium 134.6 L Potassium 3.6 Chloride 102 Carbon Dioxide 25 Anion Gap 8 BUN 10 Creatinine 0.49 L Est GFR ( Amer) > 60 Glucose 283 H Calcium 8.3 L Phosphorus 3.3 Magnesium 2.0 Total Bilirubin AST Alkaline Phosphatase Total Protein Albumin Lipase Urine Color Urine Appearance Urine pH Ur Specific [place] Urine Protein Urine Glucose (UA) Urine Ketones Urine Blood Urine Nitrite Ur Leukocyte Esterase Impressions: Chest X-Ray 02/09/19 14:14 IMPRESSION: Markedly abnormal chest film, with air-fluid levels over the right lateral lower hemithorax, either in lung bullae or blebs, or possibly along the major fissure. Cavitation in the bilateral upper lobes. Tuberculosis could not be excluded. Findings called to the emergency room practitioner as above Abdomen Ultrasound 02/09/19 14:16 IMPRESSION: Gallstone. No acute inflammatory changes. No free fluid. Chest/Abdomen CTA 02/09/19 17:15 IMPRESSION: Multiple cavitary lesions, some with air-fluid levels. Mycobacterial disease is a concern given the appearance. Fungal or Bacterial superimposed disease is also a possibility. Malignancy is not excluded. There is diffuse architectural distortion throughout both lungs with bronchiectasis and severe emphysema. No emboli visualized in the main pulmonary arteries or the segmental branches. Assessment & Plan - Diagnosis (1) Melena Is this a current diagnosis for this admission?: Yes Plan: c/o tarry stools x 1 week diarrhea consider GI consult for colonoscopy (2) Acute exacerbation of chronic obstructive pulmonary disease (COPD) Is this a current diagnosis for this admission?: Yes Plan: cover for mycoplasma and legionella as well as enteric bacteria Generic Name Dose Route Start Last Admin Trade Name Freq PRN Reason Stop Dose Admin Methylprednisolone Sodium Succinate 40 mg 02/09/19 18:00 02/10/19 09:32 Solu-Medrol Inj/Pf 40 Mg/1 Ml Sdv IV 03/11/19 17:59 40 mg Q8A CHARLEE Vancomycin HCl 1,250 mg/ 250 mls @ 166.667 mls/hr 02/10/19 11:00 02/10/19 12:41 Dextrose IV 02/17/19 10:59 166.6 mls/hr Q8@0300,1100,1900 CHARLEE 166.6 mls/hr Guaifenesin/Codeine Phosphate 5 ml 02/09/19 17:44 Robitussin-Ac Liquid 5 Ml Udcup PO 03/11/19 17:43 Q6HP PRN COUGH Nicotine 1 each 02/10/19 10:00 02/10/19 09:32 Nicoderm 21 Mg/24 Hr Transderm Patch TD 03/12/19 09:59 1 each DAILY CHARLEE Albuterol 2.5 mg 02/09/19 17:31 Ventolin 0.083% Neb 2.5 Mg/3 Ml Ampul NEB 03/11/19 17:30 RTQ4HP PRN SHORTNESS OF BREATH Albuterol/Ipratropium 3 ml 02/10/19 08:00 02/10/19 07:59 Duoneb 3 Ml Ampul NEB 03/12/19 07:59 3 ml RTBID CHARLEE Levofloxacin/Dextrose 750 mg in 150 mls @ 100 mls/hr 02/09/19 18:00 02/09/19 21:40 Levaquin Rtu 750 Mg/D5w 150 Ml Premix IV 02/16/19 17:59 Infused QPM [facility] (3) Pneumonia Qualifiers: Pneumonia type: due to unspecified organism Laterality: unspecified late rality Lung location: unspecified part of lung Qualified Code(s): J18.9 - Pneumonia, unspecified organism Is this a current diagnosis for this admission?: Yes (4) Pulmonary cavitary lesion Is this a current diagnosis for this admission?: Yes Plan: 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[place] and [place] (5) Weight decreasing Is this a current diagnosis for this admission?: Yes Plan: decrease in appetete (6) Tobacco abuse Is this a current diagnosis for this admission?: Yes Plan: STOP SMOKING (7) Tobacco abuse counseling Is this a current diagnosis for this admission?: Yes Plan: Discussed at length risk and dangers associated with continued tobacco use (8) Dysphagia causing pulmonary aspiration with swallowing Is this a current diagnosis for this admission?: Yes Plan: mod ab swallow (9) Uncontrolled daytime somnolence Is this a current diagnosis for this admission?: Yes Plan: Will need a sleep study post discharge
[2019-02-10] MEDS: LEVOFLOXACIN 750 MG/D5W RTU 750 MG/150 ML RTUPB IV SCH (17:24)
[2019-02-11] MEDS: METHYLPREDNISOLONE INJ 40 MG/1 ML SDV IV SCH ×2 (02:14→10:20)
[2019-02-11] MEDS: VANCOMYCIN HCL 1,250 MG in DEXTROSE 5%-WATER 250 ML IV SCH ×2 (02:14→10:20)
[2019-02-11 04:36] LABS: HEMOGLOBIN 11.2 g/dL (13.5-17.0); MEAN CORPUSCULAR HEMOGLOBIN 30.3 pg (27.0-33.4); MEAN CORPUSCULAR HGB CONC 32.9 g/dL (32.0-36.0); MEAN CORPUSCULAR VOLUME 92 fl (80-97); PLATELET COUNT 361 10^3/uL (150-450); RED CELL DISTRIBUTION WIDTH 16.7 % (11.5-14.0)
[2019-02-11 04:48] LABS: ANION GAP 6 (5-19); BLOOD UREA NITROGEN 10 mg/dL (7-20); CALCIUM 8.4 mg/dL (8.4-10.2); CARBON DIOXIDE 29 mmol/L (22-30); CHLORIDE 102 mmol/L (98-107); GLUCOSE 158 mg/dL (75-110); POTASSIUM 3.6 mmol/L (3.6-5.0)
[2019-02-11 05:06] LABS: ABSOLUTE LYMPHOCYTES# (MANUAL) 0.4 10^3/uL (0.5-4.7); ABSOLUTE MONOCYTES # (MANUAL) 0.6 10^3/uL (0.1-1.4); ANISOCYTOSIS 1+; BAND NEUTROPHILS % (MANUAL) 3 % (3-5); BASOPHILS % (MANUAL) 0 % (0-2); EOSINOPHILS % (MANUAL) 0 % (0-6); LYMPHOCYTES % (MANUAL) 4 % (13-45); MONOCYTES % (MANUAL) 6 % (3-13); PLATELET COMMENT ADEQUATE; SEGMENTED NEUTROPHILS % (MAN) 87 % (42-78); TOTAL CELLS COUNTED 100
[2019-02-11] MEDS: HEPARIN SOD (PORCINE) 5,000 UNIT/ML 1 ML VIAL SUBCUT SCH ×3 (05:53→22:01)
[2019-02-11] MEDS: AZTREONAM 2 GM in DEXTROSE 5%-WATER 100 ML IV SCH ×3 (05:53→22:02)
[2019-02-11] MEDS: OXYCODONE-ACETAMINOPHEN 5-325 MG TABLET PO PRN ×3 (05:57→20:27)
[2019-02-11] MEDS: IPRATROPIUM/ALBUTEROL 0.5-2.5 MG/3 ML AMPUL NEB SCH ×2 (08:08→19:42)
[2019-02-11] MEDS: NICOTINE 21 MG/24 HR PATCH.TD24 TD SCH (10:19)
--- NOTE | 2019-02-11 11:18 | PDOC PROGRESS REPORT ---
Subjective Progress Note for:: 02/11/19 Subjective:: Feels a little bit better Reason For Visit: CAVITARY LUNG LESIONS, PNEUMONIA Physical Exam Vital Signs: Temp Pulse Resp BP Pulse Ox 97.5 F 60 14 106/70 91 L 02/11/19 04:00 02/11/19 08:08 02/11/19 08:08 02/11/19 04:00 02/11/19 08:08 Intake & Output 02/10/19 02/11/19 02/12/19 06:59 06:59 06:59 Intake Total 400 1842 Output Total 500 Balance -100 1842 Weight 111.2 kg 62.2 kg General appearance: PRESENT: no acute distress, cooperative, disheveled, thin Head exam: PRESENT: atraumatic, normocephalic Eye exam: PRESENT: conjunctiva pale, EOMI Mouth exam: PRESENT: dry mucosa, neck supple, tongue midline Teeth exam: PRESENT: edentulous Neck exam: ABSENT: carotid bruit, full ROM, JVD, lymphadenopathy, meningismus, tenderness, thyromegaly, tracheal deviation, tracheostomy, other Respiratory exam: PRESENT: decreased breath sounds, prolonged expiratory phas, rales, unlabored. ABSENT: retraction, rhonchi Cardiovascular exam: PRESENT: RRR, +S1, +S2. ABSENT: tachycardia Pulses: PRESENT: normal radial pulses GI/Abdominal exam: PRESENT: soft. ABSENT: distended, guarding, mass, rebound, tenderness Extremities exam: ABSENT: calf tenderness, clubbing, joint swelling Musculoskeletal exam: ABSENT: deformity, dislocation Neurological exam: PRESENT: alert, awake Psychiatric exam: PRESENT: appropriate affect Skin exam: PRESENT: dry, warm Results Laboratory Results: 02/11/19 03:44 02/11/19 03:44 02/10/19 02/11/19 02/11/19 15:03 03:44 03:44 WBC 10.0 RBC 3.70 L Hgb 11.2 L Hct 34.0 L MCV 92 MCH 30.3 MCHC 32.9 RDW 16.7 H Plt Count 361 Seg Neutrophils % Not Reportable Sodium 137.1 Potassium 3.6 Chloride 102 Carbon Dioxide 29 Anion Gap 6 BUN 10 Creatinine 0.64 Est GFR ( Amer) > 60 Glucose 158 H Calcium 8.4 CSF Coccidioides Ab ID Cancelled CSF Coccidioides Ab CF Cancelled 02/10/19 06:40 Sputum Gram Stain - Final 02/10/19 06:40 Sputum Sputum Culture - Final REDUCED NORMAL RAISA Impressions: Chest X-Ray 02/09/19 14:14 IMPRESSION: Markedly abnormal chest film, with air-fluid levels over the right lateral lower hemithorax, either in lung bullae or blebs, or possibly along the major fissure. Cavitation in the bilateral upper lobes. Tuberculosis could not be excluded. Findings called to the emergency room practitioner as above Abdomen Ultrasound 02/09/19 14:16 IMPRESSION: Gallstone. No acute inflammatory changes. No free fluid. Chest/Abdomen CTA 02/09/19 17:15 IMPRESSION: Multiple cavitary lesions, some with air-fluid levels. Mycobacterial disease is a concern given the appearance. Fungal or Bacterial superimposed disease is also a possibility. Malignancy is not excluded. There is diffuse architectural distortion throughout both lungs with bronchiectasis and severe emphysema. No emboli visualized in the main pulmonary arteries or the segmental branches. Assessment & Plan - Diagnosis (1) Melena Is this a current diagnosis for this admission?: Yes Plan: consider GI consult for colonoscopy (2) Acute exacerbation of chronic obstructive pulmonary disease (COPD) Is this a current diagnosis for this admission?: Yes Plan: cover for mycoplasma and legionella as well as enteric bacteria Generic Name Dose Route Start Last Admin Trade Name Freq PRN Reason Stop Dose Admin Methylprednisolone Sodium Succinate 40 mg 02/09/19 18:00 02/10/19 09:32 Solu-Medrol Inj/Pf 40 Mg/1 Ml Sdv IV 03/11/19 17:59 40 mg Q8A CHARLEE Vancomycin HCl 1,250 mg/ 250 mls @ 166.667 mls/hr 02/10/19 11:00 02/10/19 12:41 Dextrose IV 02/17/19 10:59 166.6 mls/hr Q8@0300,1100,1900 CHARLEE 166.6 mls/hr Guaifenesin/Codeine Phosphate 5 ml 02/09/19 17:44 Robitussin-Ac Liquid 5 Ml Udcup PO 03/11/19 17:43 Q6HP PRN COUGH Nicotine 1 each 02/10/19 10:00 02/10/19 09:32 Nicoderm 21 Mg/24 Hr Transderm Patch TD 03/12/19 09:59 1 each DAILY CHARLEE Albuterol 2.5 mg 02/09/19 17:31 Ventolin 0.083% Neb 2.5 Mg/3 Ml Ampul NEB 03/11/19 17:30 RTQ4HP PRN SHORTNESS OF BREATH Albuterol/Ipratropium 3 ml 02/10/19 08:00 02/10/19 07:59 Duoneb 3 Ml Ampul NEB 03/12/19 07:59 3 ml RTBID CHARLEE Levofloxacin/Dextrose 750 mg in 150 mls @ 100 mls/hr 02/09/19 18:00 02/09/19 21:40 Levaquin Rtu 750 Mg/D5w 150 Ml Premix IV 02/16/19 17:59 Infused QPM CHARLEE (3) Pneumonia Qualifiers: Pneumonia type: due to unspecified organism Laterality: unspecified laterality Lung location: unspecified part of lung Qualified Code(s): J18.9 - Pneumonia, unspecified organism Is this a current diagnosis for this admission?: Yes Plan: gpc in 1 of 2 bc (4) Pulmonary cavitary lesion Is this a current diagnosis for this admission?: Yes Plan: 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[place] and [place] (5) Weight decreasing Is this a current diagnosis for this admission?: Yes Plan: decrease in appetete (6) Tobacco abuse Is this a current diagnosis for this admission?: Yes Plan: STOP SMOKING (7) Tobacco abuse counseling Is this a current diagnosis for this admission?: Yes Plan: Discussed at length risk and dangers associated with continued tobacco use (8) Dysphagia causing pulmonary aspiration with swallowing Is this a current diagnosis for this admission?: Yes (9) Uncontrolled daytime somnolence Is this a current diagnosis for this admission?: Yes Plan: Will need a sleep study post discharge
--- NOTE | 2019-02-11 15:48 | PDOC PROGRESS REPORT ---
Subjective Progress Note for:: 02/11/19 Subjective:: This is a 58-year-old male with oxygen dependent COPD who presented with increasing shortness of breath. He was found to have bilateral upper lobe cavitary lesions. He was started on IV antibiotics. Assumed care today. Reviewed records from his hospitalization in [place]. He was admitted there in April 2018 and was found to have bilateral upper lobe cavitary lesions. He had a QuantiFERON TB Gold testing which was negative. It seems fungal serologies including beta 1 3 glucan, Aspergillus serology and coccidioides were sent but were still in process when he was discharged. He says he did not know the results of these lab testing. This morning, he is not in acute distress. He says he feels like he is at his baseline. Denies chest pain. No fever or chills. We will try to request again the results of the lab testing mentioned above. He says he was having dark, loose stools more than a week ago and was previously referred for outpatient colonoscopy by his PCP but he says he did not make the appointment as he had to go to [place]. He says his stools are back to his baseline. His hemoglobin has been stable. Reason For Visit: CAVITARY LUNG LESIONS, PNEUMONIA Physical Exam Vital Signs: Temp Pulse Resp BP Pulse Ox 97.5 F 60 14 106/70 91 L 02/11/19 04:00 02/11/19 08:08 02/11/19 08:08 02/11/19 04:00 02/11/19 08:08 Intake & Output 02/10/19 02/11/19 02/12/19 06:59 06:59 06:59 Intake Total 400 1842 1610 Output Total 500 Balance -100 1842 1610 Weight 245 lb 2.464 oz 137 lb 2.04 oz General appearance: PRESENT: no acute distress, well-developed, well-nourished Head exam: PRESENT: atraumatic, normocephalic Eye exam: PRESENT: conjunctiva pink, EOMI, PERRLA. ABSENT: scleral icterus Ear exam: PRESENT: normal external ear exam Mouth exam: PRESENT: moist, tongue midline Neck exam: ABSENT: carotid bruit, JVD, lymphadenopathy, thyromegaly Respiratory exam: PRESENT: rhonchi. ABSENT: rales, wheezes Cardiovascular exam: PRESENT: RRR. ABSENT: diastolic murmur, rubs, systolic murmur Pulses: PRESENT: normal dorsalis pedis pul GI/Abdominal exam: PRESENT: normal bowel sounds, soft. ABSENT: distended, guarding, mass, organolmegaly, rebound, tenderness Rectal exam: PRESENT: deferred Extremities exam: PRESENT: full ROM. ABSENT: calf tenderness, clubbing, pedal edema Neurological exam: PRESENT: alert, awake, oriented to person, oriented to place, oriented to time, oriented to situation, CN II-XII grossly intact. ABSENT: motor sensory deficit Results Laboratory Results: 02/11/19 03:44 02/11/19 03:44 02/10/19 02/11/19 02/11/19 15:03 03:44 03:44 WBC 10.0 RBC 3.70 L Hgb 11.2 L Hct 34.0 L MCV 92 MCH 30.3 MCHC 32.9 RDW 16.7 H Plt Count 361 Seg Neutrophils % Not Reportable Sodium 137.1 Potassium 3.6 Chloride 102 Carbon Dioxide 29 Anion Gap 6 BUN 10 Creatinine 0.64 Est GFR ( Amer) > 60 Glucose 158 H Calcium 8.4 CSF Coccidioides Ab ID Cancelled CSF Coccidioides Ab CF Cancelled 02/10/19 06:40 Sputum Gram Stain - Final 02/10/19 06:40 Sputum Sputum Culture - Final REDUCED NORMAL RAISA Impressions: Chest X-Ray 02/09/19 14:14 IMPRESSION: Markedly abnormal chest film, with air-fluid levels over the right lateral lower hemithorax, either in lung bullae or blebs, or possibly along the major fissure. Cavitation in the bilateral upper lobes. Tuberculosis could not be excluded. Findings called to the emergency room practitioner as above Abdomen Ultrasound 02/09/19 14:16 IMPRESSION: Gallstone. No acute inflammatory changes. No free fluid. Chest/Abdomen CTA 02/09/19 17:15 IMPRESSION: Multiple cavitary lesions, some with air-fluid levels. M ycobacterial disease is a concern given the appearance. Fungal or Bacterial superimposed disease is also a possibility. Malignancy is not excluded. There is diffuse architectural distortion throughout both lungs with bronchiectasis and severe emphysema. No emboli visualized in the main pulmonary arteries or the segmental branches. Assessment and Plan - Diagnosis (1) Pulmonary cavitary lesion Is this a current diagnosis for this admission?: Yes Plan: Reviewed records from his hospitalization in [place]. He was admitted there in April 2018 and was found to have bilateral upper lobe cavitary lesions. He had a QuantiFERON TB Gold testing which was negative. It seems fungal serologies including beta 1 3 glucan, Aspergillus serology and coccidioides were sent but were still in process when he was discharged. He says he did not know the results of these lab testing. We will try to request again the results of the lab testing mentioned above. He is currently getting aztreonam, levofloxacin and vancomycin. Plan to discontinue these antibiotics today pending further recommendations from ID. Possibility of fungal cause of his cavitary lesions. Will await further ID recommendations about need for antifungal therapy. (2) Pneumonia Qualifiers: Pneumonia type: due to unspecified organism Laterality: unspecified laterality Lung location: unspecified part of lung Qualified Code(s): J18.9 - Pneumonia, unspecified organism Is this a current diagnosis for this admission?: Yes Plan: As mentioned per #1. (3) Acute exacerbation of chronic obstructive pulmonary disease (COPD) Is this a current diagnosis for this admission?: Yes Plan: Currently on Solu-Medrol 40 IV every 8. Switch to prednisone 20 mg twice daily.
[2019-02-11] MEDS: PREDNISONE 20 MG TABLET PO SCH (18:21)
[2019-02-11] MEDS: LEVOFLOXACIN 750 MG/D5W RTU 750 MG/150 ML RTUPB IV SCH (18:21)
--- NOTE | 2019-02-11 19:05 | Progress Note ---
Provider Note Provider Note: ID Consult Note Asked to review patient's chart. Pt not seen or examined. Pt is a 58 year old man with PMH including COPD with chronic hypoxic respiratory failure on home oxygen and CAD who p/w productive cough with posttussive emesis and R sided flank pain. Complaints of congestion, cough, SOB and R flank pain as well as some night sweats have been going on for the last several weeks. The patient is visiting from [place]. He had a previous hospitalization there in Apr 2018, at which time bilateral upper lobe cavitary lesions were investigated. He had no fever and some rhonchi on exam. Imaging this admission includes CXR with air- fluid levels over R lower lateral hemithorax and cavitation in the upper lobes, which was further investigated with CTA of the chest that showed severe emphysema, large cavitary lesions in both upper lobes and a large large cavitary lesion in the right lower lobe with air fluid levels approximately 10 cm in diameter. Pt was given steroids and empiric antibiotics with Levaquin, vancomycin and aztreonam (penicillin allergy) and placed on airborne isolation. WBC count normal. HIV antigen/antibody test is negative. Sputum smear x 2 has 1+ AFB seen. One blood culture bottle from 02/09 has GPCs in clusters, yet to be identified. Sputum culture has grown normal ramses only. Pt reports feeling somewhat better. Impression/Recommendations Cavitary lung lesions and lung abscess - With AFB AFB sputum smears positive, pulmonary TB is a concern, although the air-fluid lower lobe cavity is not typical for its appearance. He could have a bacterial lung abscess in the RLL (any risk factors - poor dentition? aspiration? sedating medications?). However, he could also potentially have a mycobacterial process with the positive AFB smears or potentially two problems. - The identification of the AFB? This may not be active pulmonary TB if he was previously investigated for a similar process and found negative relatively recently, but the possibility exists that he could have acquired it since being last evaluated 9 months ago. Quantiferon cannot rule out active TB. With cavitary lung lesions and AFB smear positive, until TB can be ruled out, from a pubic health standpoint, we are going to be compelled to regard it as though it could be TB. * A nucleic acid amplification test or PCR of the sputum would be the most expeditious way to rule out TB - can send to the [facility] lab for this, if a test like GeneXpert MTB/RIF is not available in-house. If PCR for TB is negative on an AFB-smear positive sample, it would give high confidence that this is not TB. Will take several days to come back, regardless of whether sent to [facility] or to the [facility] lab for PCR if it cannot be done in hospital. * With the positive AFB smears, sugggest presumtive TB treatment with isoniazid 300 mg, rifampin 600 mg, ethambutol 1200 mg, and pyrazinamide 1500 mg. Would discontinue if NAAT or PCR of sputum comes back negative for TB. Keep on airborne isolation until then. - Possibility of bacterial lung abscess: With no resistant organisms isolated from sputum, empirically agents such as PO clindamycin or Augmentin or moxifloxacin might be reasonable. Given hx of penicillin allergy, consider switch to PO clindamycin 300 mg TID. Pt has penicillin allergy in his chart, but over 90% of patients who report penicillin allergy do not have true IgE mediated penicillin allergy, and it might be possible for patient to clarify nature of the reaction (- for example, if an unknown reaction >10 years ago, it would be appropriate to challenge the patient with oral amoxicillin 250 mg x1; or if the reaction was anaphylaxis or SJS/TEN then the offending medication would need to continue to be avoided; or if it was GI upset, this is a known potential side effect but not a reason to exclude treatment, etc). - Would not start empiric treatment for nontuberculous mycobacteria - Would not start antifungal empirically Suspected pseudobacteremia or blood culture contamination - one bottle on admission positive for GPCs in clusters in patient with no fever, no leukocytosis, no acute symptoms; doubt this is going to be identified as Staph aureus. Suspect coagulase negative Staph in 1 bottle and that no treatment will be indicated. Jorge Gonzalez MD [facility] Infectious Diseases pager [phone]
[2019-02-11 20:08] LABS: VANCOMYCIN,TROUGH 16.1 ug/mL (5.0-20.0)
[2019-02-11] MEDS: ZOLPIDEM TARTRATE 5 MG TABLET PO PRN (22:02)
[2019-02-12 04:49] LABS: HEMATOCRIT 33.7 % (37.9-51.0); HEMOGLOBIN 11.3 g/dL (13.5-17.0); MEAN CORPUSCULAR HEMOGLOBIN 30.5 pg (27.0-33.4); MEAN CORPUSCULAR HGB CONC 33.5 g/dL (32.0-36.0); MEAN CORPUSCULAR VOLUME 91 fl (80-97); PLATELET COUNT 365 10^3/uL (150-450); RED CELL DISTRIBUTION WIDTH 16.8 % (11.5-14.0); WHITE BLOOD COUNT 8.1 10^3/uL (4.0-10.5)
[2019-02-12 05:05] LABS: ANION GAP 7 (5-19); BLOOD UREA NITROGEN 16 mg/dL (7-20); CALCIUM 8.5 mg/dL (8.4-10.2); CARBON DIOXIDE 29 mmol/L (22-30); CHLORIDE 103 mmol/L (98-107); GLUCOSE 106 mg/dL (75-110); POTASSIUM 4.5 mmol/L (3.6-5.0)
[2019-02-12 05:22] LABS: ABSOLUTE LYMPHOCYTES# (MANUAL) 0.3 10^3/uL (0.5-4.7); ABSOLUTE MONOCYTES # (MANUAL) 0.5 10^3/uL (0.1-1.4); BASOPHILS % (MANUAL) 0 % (0-2); EOSINOPHILS % (MANUAL) 0 % (0-6); LYMPHOCYTES % (MANUAL) 4 % (13-45); MONOCYTES % (MANUAL) 6 % (3-13); SEGMENTED NEUTROPHILS % (MAN) 90 % (42-78); TOTAL CELLS COUNTED 100
[2019-02-12 05:23] LABS: ANISOCYTOSIS 1+; PLATELET COMMENT ADEQUATE
[2019-02-12] MEDS: AZTREONAM 2 GM in DEXTROSE 5%-WATER 100 ML IV SCH (05:23)
[2019-02-12] MEDS: HEPARIN SOD (PORCINE) 5,000 UNIT/ML 1 ML VIAL SUBCUT SCH ×4 (05:23→22:26)
[2019-02-12] MEDS: OXYCODONE-ACETAMINOPHEN 5-325 MG TABLET PO PRN ×4 (06:11→22:26)
[2019-02-12] MEDS: IPRATROPIUM/ALBUTEROL 0.5-2.5 MG/3 ML AMPUL NEB SCH ×2 (08:38→20:25)
[2019-02-12] MEDS: PREDNISONE 20 MG TABLET PO SCH ×2 (09:59→17:25)
[2019-02-12] MEDS: NICOTINE 21 MG/24 HR PATCH.TD24 TD SCH (09:59)
--- NOTE | 2019-02-12 14:15 | PDOC PROGRESS REPORT ---
Subjective Progress Note for:: 02/12/19 Subjective:: This is a 58-year-old male with oxygen dependent COPD who presented with increasing shortness of breath. He was found to have bilateral upper lobe cavitary lesions. He was started on IV antibiotics. 02/11: Assumed care today. Reviewed records from his hospitalization in [place]. He was admitted there in April 2018 and was found to have bilateral upper lobe cavitary lesions. He had a QuantiFERON TB Gold testing which was negative. It seems fungal serologies including beta 1 3 glucan, Aspergillus serology and coccidioides were sent but were still in process when he was discharged. He says he did not know the results of these lab testing. This morning, he is not in acute distress. He says he feels like he is at his baseline. Denies chest pain. No fever or chills. We will try to request again the results of the lab testing mentioned above. He says he was having dark, loose stools more than a week ago and was previously referred for outpatient colonoscopy by his PCP but he says he did not make the appointment as he had to go to [place]. He says his stools are back to his baseline. His hemoglobin has been stable. 02/12: No acute events overnight. He denies chest pain or shortness of breath. Sputum AFB studies came back positive. Appreciate ID recommendations. Will start anti-TB regimen. Reason For Visit: CAVITARY LUNG LESIONS, PNEUMONIA Physical Exam Vital Signs: Temp Pulse Resp BP Pulse Ox 97.2 F 57 L 18 125/80 95 02/12/19 11:36 02/12/19 11:36 02/12/19 11:36 02/12/19 11:36 02/12/19 11:36 Intake & Output 02/11/19 02/12/19 02/13/19 06:59 06:59 06:59 Intake Total 1841999 360 Balance 1841999 360 Weight 137 lb 2.04 oz 141 lb 5.061 oz General appearance: PRESENT: no acute distress, well-developed, well-nourished Head exam: PRESENT: atraumatic, normocephalic Eye exam: PRESENT: conjunctiva pink, EOMI, PERRLA. ABSENT: scleral icterus Ear exam: PRESENT: normal external ear exam Mouth exam: PRESENT: moist, tongue midline Neck exam: ABSENT: carotid bruit, JVD, lymphadenopathy, thyromegaly Respiratory exam: PRESENT: rhonchi. ABSENT: rales, wheezes Cardiovascular exam: PRESENT: RRR. ABSENT: diastolic murmur, rubs, systolic murmur Pulses: PRESENT: normal dorsalis pedis pul GI/Abdominal exam: PRESENT: normal bowel sounds, soft. ABSENT: distended, guarding, mass, organolmegaly, rebound, tenderness Rectal exam: PRESENT: deferred Extremities exam: PRESENT: full ROM. ABSENT: calf tenderness, clubbing, pedal edema Neurological exam: PRESENT: alert, awake, oriented to person, oriented to place, oriented to time, oriented to situation, CN II-XII grossly intact. ABSENT: motor sensory deficit Results Laboratory Results: 02/12/19 03:42 02/12/19 03:42 02/12/19 02/12/19 03:42 03:42 WBC 8.1 RBC 3.70 L Hgb 11.3 L Hct 33.7 L MCV 91 MCH 30.5 MCHC 33.5 RDW 16.8 H Plt Count 365 Seg Neutrophils % Not Reportable Sodium 138.7 Potassium 4.5 Chloride 103 Carbon Dioxide 29 Anion Gap 7 BUN 16 Creatinine 0.59 Est GFR ( Amer) > 60 Glucose 106 Calcium 8.5 02/09/19 17:16 Blood Blood Culture - Final Staphylococcus Epidermidis Corynebacterium Species 02/10/19 06:40 Sputum Gram Stain - Final 02/10/19 06:40 Sputum Sputum Culture - Final REDUCED NORMAL RAISA Impressions: Chest X-Ray 02/09/19 14:14 IMPRESSION: Markedly abnormal chest film, with air-fluid levels over the right lateral lower hemithorax, either in lung bullae or blebs, or possibly along the major fissure. Cavitation in the bilateral upper lobes. Tuberculosis could not be excluded. Findings called to the emergency room practitioner as above Abdomen Ultrasound 02/09/19 14:16 IMPRESSION: Gallstone. No acute inflammatory changes. No free fluid. Chest/Abdomen CTA 02/09/19 17:15 IMPRESSION: Multiple cavitary lesions, some with air-fluid levels. Mycobacterial disease is a concern given the appearance. Fungal or Bacterial superimposed disease is also a possibility. Malignancy is not excluded. There is diffuse architectural distortion throughout both lungs with bronchiectasis and severe emphysema. No emboli visualized in the main pulmonary arteries or the segmental branches. Assessment and Plan - Diagnosis (1) Pulmonary cavitary lesion Is this a current diagnosis for this admission?: Yes Plan: 02/11: Reviewed records from his hospitalization in [place]. He was admitted there in April 2018 and was found to have bilateral upper lobe cavitary lesions. He had a QuantiFERON TB Gold testing which was negative. It seems fungal serologies including beta 1 3 glucan, Aspergillus serology and coccidioides were sent but were still in process when he was discharged. He says he did not know the results of these lab testing. We will try to request again the results of the lab testing mentioned above. He is currently getting aztreonam, levofloxacin and vancomycin. Plan to discontinue these antibiotics today pending further recommendations from ID. Possibility of fungal cause of his cavitary lesions. Will await further ID recommendations about need for antifungal therapy. 02/12: Sputum AFB studies came back positive. Appreciate ID recommendations. Will start anti-TB regimen. We will also send for sputum PCR testing. (2) Pneumonia Qualifiers: Pneumonia type: due to unspecified organism Laterality: unspecified laterality Lung location: unspecified part of lung Qualified Code(s): J18.9 - Pneumonia, unspecified organism Is this a current diagnosis for this admission?: Yes Plan: 02/12: Patient does have poor dentition and chronic alcoholism. Vancomycin discontinued. Will also discontinue levofloxacin and aztreonam and will switch to clindamycin p.o. (3) Acute exacerbation of chronic obstructive pulmonary disease (COPD) Is this a current diagnosis for this admission?: Yes Plan: 02/11: Currently on Solu-Medrol 40 IV every 8. Switch to prednisone 20 mg twice daily. (4) Alcohol dependence Is this a current diagnosis for this admission?: Yes Plan: Counseled on alcohol drinking cessation. - Time Time Spent with patient: 25-34 minutes
[2019-02-12] MEDS: FAMOTIDINE 20 MG TABLET PO SCH ×3 (14:22→22:26)
[2019-02-12] MEDS: PYRIDOXINE HCL 50 MG TABLET PO SCH (14:22)
[2019-02-12] MEDS: PYRAZINAMIDE 500 MG TABLET PO SCH (14:22)
[2019-02-12] MEDS: ETHAMBUTOL HCL 400 MG TABLET PO SCH (14:23)
[2019-02-12] MEDS: ISONIAZID 300 MG TABLET PO SCH (14:23)
[2019-02-12] MEDS: ZOLPIDEM TARTRATE 5 MG TABLET PO PRN (22:26)
[2019-02-13] MEDS: OXYCODONE-ACETAMINOPHEN 5-325 MG TABLET PO PRN ×4 (05:41→22:26)
[2019-02-13] MEDS: HEPARIN SOD (PORCINE) 5,000 UNIT/ML 1 ML VIAL SUBCUT SCH ×3 (05:43→22:39)
[2019-02-13] MEDS: IPRATROPIUM/ALBUTEROL 0.5-2.5 MG/3 ML AMPUL NEB SCH ×2 (07:42→20:36)
[2019-02-13] MEDS: RIFAMPIN 300 MG CAPSULE PO SCH (08:05)
[2019-02-13] MEDS: PREDNISONE 20 MG TABLET PO SCH ×2 (10:18→17:12)
[2019-02-13] MEDS: ETHAMBUTOL HCL 400 MG TABLET PO SCH (10:18)
[2019-02-13] MEDS: FAMOTIDINE 20 MG TABLET PO SCH ×2 (10:18→22:26)
[2019-02-13] MEDS: ISONIAZID 300 MG TABLET PO SCH (10:18)
[2019-02-13] MEDS: PYRIDOXINE HCL 50 MG TABLET PO SCH (10:18)
[2019-02-13] MEDS: PYRAZINAMIDE 500 MG TABLET PO SCH (10:18)
[2019-02-13] MEDS: NICOTINE 21 MG/24 HR PATCH.TD24 TD SCH (10:18)
--- NOTE | 2019-02-13 15:26 | PDOC PROGRESS REPORT ---
Subjective Progress Note for:: 02/13/19 Subjective:: This is a 58-year-old male with oxygen dependent COPD who presented with increasing shortness of breath. He was found to have bilateral upper lobe cavitary lesions. He was started on IV antibiotics. 02/11: Assumed care today. Reviewed records from his hospitalization in [place]. He was admitted there in April 2018 and was found to have bilateral upper lobe cavitary lesions. He had a QuantiFERON TB Gold testing which was negative. It seems fungal serologies including beta 1 3 glucan, Aspergillus serology and coccidioides were sent but were still in process when he was discharged. He says he did not know the results of these lab testing. This morning, he is not in acute distress. He says he feels like he is at his baseline. Denies chest pain. No fever or chills. We will try to request again the results of the lab testing mentioned above. He says he was having dark, loose stools more than a week ago and was previously referred for outpatient colonoscopy by his PCP but he says he did not make the appointment as he had to go to [place]. He says his stools are back to his baseline. His hemoglobin has been stable. 02/12: He denies chest pain or shortness of breath. Sputum AFB studies came back positive. Appreciate ID recommendations. Will start anti-TB regimen. 02/13: No acute event overnight. Patient denies any acute complaints. No chest pain or shortness of breath. Sputum AFB came back positive x3. Awaiting further culture results and TB sputum PCR study. Reason For Visit: CAVITARY LUNG LESIONS, PNEUMONIA Physical Exam Vital Signs: Temp Pulse Resp BP Pulse Ox 97.4 F 54 L 18 131/73 H 95 02/13/19 08:49 02/13/19 14:00 02/13/19 08:49 02/13/19 08:49 02/13/19 08:49 Intake & Output 02/12/19 02/13/19 02/14/19 06:59 06:59 06:59 Intake Total 1999 720 Balance 1999 720 Weight 141 lb 5.061 oz 140 lb 3.424 oz General appearance: PRESENT: no acute distress, well-developed, well-nourished Head exam: PRESENT: atraumatic, normocephalic Eye exam: PRESENT: conjunctiva pink, EOMI, PERRLA. ABSENT: scleral icterus Ear exam: PRESENT: normal external ear exam Mouth exam: PRESENT: moist, tongue midline Neck exam: ABSENT: carotid bruit, JVD, lymphadenopathy, thyromegaly Respiratory exam: PRESENT: rhonchi. ABSENT: rales, wheezes Cardiovascular exam: PRESENT: RRR. ABSENT: diastolic murmur, rubs, systolic murmur Pulses: PRESENT: normal dorsalis pedis pul GI/Abdominal exam: PRESENT: normal bowel sounds, soft. ABSENT: distended, guarding, mass, organolmegaly, rebound, tenderness Rectal exam: PRESENT: deferred Extremities exam: PRESENT: full ROM. ABSENT: calf tenderness, clubbing, pedal edema Neurological exam: PRESENT: alert, awake, oriented to person, oriented to place, oriented to time, oriented to situation, CN II-XII grossly intact. ABSENT: motor sensory deficit Results Laboratory Results: 02/12/19 03:42 02/12/19 03:42 02/11/19 06:00 Sputum AFB Smear Concentration - Final 02/11/19 06:00 Sputum Acid Fast Bacilli Smear - Final 02/10/19 06:40 Sputum Fungal Smear - Final 02/10/19 06:40 Sputum Fungal Smear - Final 02/10/19 06:40 Sputum AFB Smear Concentration - Final 02/10/19 06:40 Sputum Acid Fast Bacilli Smear - Final 02/09/19 17:16 Blood Blood Culture - Final Staphylococcus Epidermidis Corynebacterium Species Impressions: Chest X-Ray 02/09/19 14:14 IMPRESSION: Markedly abnormal chest film, with air-fluid levels over the right lateral lower hemithorax, either in lung bullae or blebs, or possibly along the major fissure. Cavitation in the bilateral upper lobes. Tuberculosis could not be excluded. Findings called to the emergency room practitioner as above Abdomen Ultrasound 02/09/19 14:16 IMPRESSION: Gallstone. No acute inflammatory changes. No free fluid. Chest/Abdomen CTA 02/09/19 17:15 IMPRESSION: Multiple cavitary lesions, some with air-fluid levels. Mycobacterial disease is a concern given the appearance. Fungal or Bacterial superimposed disease is also a possibility. Malignancy is not excluded. There is diffuse architectural distortion throughout both lungs with bronchiectasis and severe emphysema. No emboli visualized in the main pulmonary arteries or the segmental branches. Assessment and Plan - Diagnosis (1) Pulmonary cavitary lesion Is this a current diagnosis for this admission?: Yes Plan: 02/11: Reviewed records from his hospitalization in [place]. He was admitted there in April 2018 and was found to have bilateral upper lobe cavitary lesions. He had a QuantiFERON TB Gold testing which was negative. It seems fungal serologies including beta 1 3 glucan, Aspergillus serology and coccidioides were sent but were still in process when he was discharged. He says he did not know the results of these lab testing. We will try to request again the results of the lab testing mentioned above. He is currently getting aztreonam, levofloxacin and vancomycin. Plan to discontinue these antibiotics today pending further recommendations from ID. Possibility of fungal cause of his cavitary lesions. Will await further ID recommendations about need for antifungal therapy. 02/12: Sputum AFB studies came back positive. Appreciate ID recommendations. Will start anti-TB regimen. We will also send for sputum PCR testing. 02/13: Sputum AFB now positive x 3. Awaiting further culture results and TB sputum PCR study. Continue anti-TB regimen. (2) Pulmonary TB Is this a current diagnosis for this admission?: Yes Plan: As per number 1. (3) Pneumonia Qualifiers: Pneumonia type: due to unspecified organism Laterality: unspecified late rality Lung location: unspecified part of lung Qualified Code(s): J18.9 - Pneumonia, unspecified organism Is this a current diagnosis for this admission?: Yes Plan: 02/12: Patient does have poor dentition and chronic alcoholism. Vancomycin discontinued. Will also discontinue levofloxacin and aztreonam and will switch to clindamycin p.o. (4) Acute exacerbation of chronic obstructive pulmonary disease (COPD) Is this a current diagnosis for this admission?: Yes Plan: 02/11: Currently on Solu-Medrol 40 IV every 8. Switch to prednisone 20 mg twice daily. 02/13: Continue prednisone. (5) Alcohol dependence Is this a current diagnosis for this admission?: Yes Plan: Counseled on alcohol drinking cessation.
[2019-02-13] MEDS: ZOLPIDEM TARTRATE 5 MG TABLET PO PRN (22:26)
[2019-02-14] MEDS: HEPARIN SOD (PORCINE) 5,000 UNIT/ML 1 ML VIAL SUBCUT SCH ×3 (05:38→23:44)
[2019-02-14] MEDS: OXYCODONE-ACETAMINOPHEN 5-325 MG TABLET PO PRN ×3 (05:38→14:33)
[2019-02-14] MEDS: IPRATROPIUM/ALBUTEROL 0.5-2.5 MG/3 ML AMPUL NEB SCH ×2 (07:40→20:07)
[2019-02-14] MEDS: PYRAZINAMIDE 500 MG TABLET PO SCH (09:29)
[2019-02-14] MEDS: NICOTINE 21 MG/24 HR PATCH.TD24 TD SCH (09:29)
[2019-02-14] MEDS: FAMOTIDINE 20 MG TABLET PO SCH ×2 (09:29→23:43)
[2019-02-14] MEDS: ETHAMBUTOL HCL 400 MG TABLET PO SCH (09:29)
[2019-02-14] MEDS: RIFAMPIN 300 MG CAPSULE PO SCH (09:29)
[2019-02-14] MEDS: PYRIDOXINE HCL 50 MG TABLET PO SCH (09:29)
[2019-02-14] MEDS: PREDNISONE 20 MG TABLET PO SCH ×2 (09:29→17:31)
[2019-02-14] MEDS: ISONIAZID 300 MG TABLET PO SCH (09:29)
--- NOTE | 2019-02-14 12:50 | PDOC PROGRESS REPORT ---
Subjective Progress Note for:: 02/14/19 Subjective:: This is a 58-year-old male with oxygen dependent COPD who presented with increasing shortness of breath. He was found to have bilateral upper lobe cavitary lesions. He was started on IV antibiotics. 02/11: Assumed care today. Reviewed records from his hospitalization in [place]. He was admitted there in April 2018 and was found to have bilateral upper lobe cavitary lesions. He had a QuantiFERON TB Gold testing which was negative. It seems fungal serologies including beta 1 3 glucan, Aspergillus serology and coccidioides were sent but were still in process when he was discharged. He says he did not know the results of these lab testing. This morning, he is not in acute distress. He says he feels like he is at his baseline. Denies chest pain. No fever or chills. We will try to request again the results of the lab testing mentioned above. He says he was having dark, loose stools more than a week ago and was previously referred for outpatient colonoscopy by his PCP but he says he did not make the appointment as he had to go to [place]. He says his stools are back to his baseline. His hemoglobin has been stable. 02/12: He denies chest pain or shortness of breath. Sputum AFB studies came back positive. Appreciate ID recommendations. Will start anti-TB regimen. 02/13: Patient denies any acute complaints. No chest pain or shortness of breath. Sputum AFB came back positive x3. Awaiting further culture results and TB sputum PCR study. 02/14: No acute event overnight. Denies acute complaints. Sputum TB PCR came back negative. Will await further recommendations from ID. Reason For Visit: CAVITARY LUNG LESIONS, PNEUMONIA Physical Exam Vital Signs: Temp Pulse Resp BP Pulse Ox 97.5 F 63 20 116/78 95 02/14/19 11:56 02/14/19 11:56 02/14/19 11:56 02/14/19 11:56 02/14/19 11:56 Intake & Output 02/13/19 02/14/19 02/15/19 06:59 06:59 06:59 Intake Total 720 Output Total 821 Balance 720 -821 Weight 140 lb 3.424 oz 139 lb 15.896 oz General appearance: PRESENT: no acute distress, well-developed, well-nourished Head exam: PRESENT: atraumatic, normocephalic Eye exam: PRESENT: conjunctiva pink, EOMI, PERRLA. ABSENT: scleral icterus Ear exam: PRESENT: normal external ear exam Mouth exam: PRESENT: moist, tongue midline Neck exam: ABSENT: carotid bruit, JVD, lymphadenopathy, thyromegaly Respiratory exam: PRESENT: rhonchi. ABSENT: rales, wheezes Cardiovascular exam: PRESENT: RRR. ABSENT: diastolic murmur, rubs, systolic murmur Pulses: PRESENT: normal dorsalis pedis pul GI/Abdominal exam: PRESENT: normal bowel sounds, soft. ABSENT: distended, guarding, mass, organolmegaly, rebound, tenderness Rectal exam: PRESENT: deferred Extremities exam: PRESENT: full ROM. ABSENT: calf tenderness, clubbing, pedal edema Neurological exam: PRESENT: alert, awake, oriented to person, oriented to place, oriented to time, oriented to situation, CN II-XII grossly intact. ABSENT: motor sensory deficit Results Laboratory Results: 02/12/19 03:42 02/12/19 03:42 02/12/19 07:45 Sputum AFB Smear Concentration - Final 02/12/19 07:45 Sputum Acid Fast Bacilli Smear - Final Impressions: Chest X-Ray 02/09/19 14:14 IMPRESSION: Markedly abnormal chest film, with air-fluid levels over the right lateral lower hemithorax, either in lung bullae or blebs, or possibly along the major fissure. Cavitation in the bilateral upper lobes. Tuberculosis could not be excluded. Findings called to the emergency room practitioner as above Abdomen Ultrasound 02/09/19 14:16 IMPRESSION: Gallstone. No acute inflammatory changes. No free fluid. Chest/Abdomen CTA 02/09/19 17:15 IMPRESSION: Multiple cavitary lesions, some with air-fluid levels. Mycobacterial disease is a concern given the appearance. Fungal or Bacterial superimposed disease is also a possibility. Malignancy is not excluded. There is diffuse architectural distortion throughout both lungs with bronchiectasis and severe emphysema. No emboli visualized in the main pulmonary arteries or the segmental branches. Assessment and Plan - Diagnosis (1) Pulmonary cavitary lesion Is this a current diagnosis for this admission?: Yes Plan: 02/11: Reviewed records from his hospitalization in [place]. He was admitted there in April 2018 and was found to have bilateral upper lobe cavitary lesions. He had a QuantiFERON TB Gold testing which was negative. It seems fungal serologies including beta 1 3 glucan, Aspergillus serology and coccidioides were sent but were still in process when he was discharged. He says he did not know the results of these lab testing. We will try to request again the results of the lab testing mentioned above. He is currently getting aztreonam, levofloxacin and vancomycin. Plan to discontinue these antibiotics today pending further recommendations from ID. Possibility of fungal cause of his cavitary lesions. Will await further ID recommendations about need for antifungal therapy. 02/12: Sputum AFB studies came back positive. Appreciate ID recommendations. Will start anti-TB regimen. We will also send for sputum PCR testing. 02/13: Sputum AFB now positive x 3. Awaiting further culture results and TB sputum PCR study. Continue anti-TB regimen. 02/14: Sputum TB PCR came back negative. Will await further recommendations from ID. (2) Pulmonary TB Is this a current diagnosis for this admission?: Yes Plan: As per number 1. (3) Pneumonia Qualifiers: Pneumonia type: due to unspecified organism Laterality: unspecified laterality Lung location: unspecified part of lung Qualified Code(s): J18.9 - Pneumonia, unspecified organism Is this a current diagnosis for this admission?: Yes Plan: 02/12: Patient does have poor dentition and chronic alcoholism. Vancomycin dis continued. Will also discontinue levofloxacin and aztreonam and will switch to clindamycin p.o. (4) Acute exacerbation of chronic obstructive pulmonary disease (COPD) Is this a current diagnosis for this admission?: Yes Plan: 02/11: Currently on Solu-Medrol 40 IV every 8. Switch to prednisone 20 mg twice daily. 02/13: Continue prednisone. (5) Alcohol dependence Is this a current diagnosis for this admission?: Yes Plan: Counseled on alcohol drinking cessation. - Time Time Spent with patient: 25-34 minutes
[2019-02-14] MEDS: HYDROMORPHONE HCL INJ/PF 2 MG/ML AMPULE IV PRN ×2 (16:40→23:49)
--- NOTE | 2019-02-14 19:51 | Progress Note ---
Provider Note Provider Note: ID Consult Follow Up Note Pt has a lesion in the RLL that has an appearance concerning for a secondarily infected bullous lesion or secondarily infected pneumatocele. He came with cough, SOB, and R side pain. He also had upper lobe cavities and smears positive for AFB, making it prudent to rule out TB, which was done with MTB PCR being negative. This test has high sensitivity in AFB smear positive samples that it would be reasonable to discontinue airborne precautions. Would stop RIPE. With regard to the RLL lesion, if he has risk factors for aspiration, he may have infected a pre-existing bulla or pneumatocele with oropharyngeal ramses, which is what his sputum grew. The presence of fluid in the bulla could be from a noninfectious cause, but he had clinical manifestations including some night sweats, dyspnea and pleuritic chest pain that are compatible with a superinfection. For this, normally Augmentin would be a good choice, but he has reported having a penicillin allergy. Suggest treating with clindamycin 300 mg TID PO instead. Treatment duration is not well-defined. Some case series of patients with bullae with air-fluid levels have concluded that antibiotic treatment does not hasten radiographic resolution or that antibiotic duration does not have a major impact on symptomatic or radiographic resolution. Case reports often also involve percutaneous drainage of fluid from the bulla, coupled with a few weeks of antibiotics. It might be reasonable to treat for around 3-4 weeks and follow clinically to try to gauge whether or not it would be reasonable to continue longer or pursue aspiration of fluid from the bulla or some other intervention. With regard to the AFB sputum smears that are positive, he may have infection or colonization with a nontuberculous mycobacterium. No empiric treatment is indicated here. Treatments vary with the organisms, and not all organisms have the same pathogenic potential. To make a diagnosis of nontuberculous mycobacterial lung disease, he would need to have compatible clinical features, radiographic findings and repeated isolation of the same species from his sputum. It will take time for the NTM to be identified and for his clinical course and imaging to be followed as an outpatient to have a sense for what is stable or progressive. Jorge Gonzalez MD [facility] Infectious Diseases pager [phone]
[2019-02-14] MEDS: CLINDAMYCIN HCL 150 MG CAPSULE PO SCH (23:42)
[2019-02-14] MEDS: ZOLPIDEM TARTRATE 5 MG TABLET PO PRN (23:43)
[2019-02-15] MEDS: CLINDAMYCIN HCL 150 MG CAPSULE PO SCH (06:03)
[2019-02-15] MEDS: HYDROMORPHONE HCL INJ/PF 2 MG/ML AMPULE IV PRN (06:04)
[2019-02-15] MEDS: HEPARIN SOD (PORCINE) 5,000 UNIT/ML 1 ML VIAL SUBCUT SCH (06:04)
[2019-02-15] MEDS: IPRATROPIUM/ALBUTEROL 0.5-2.5 MG/3 ML AMPUL NEB SCH (09:02)
[2019-02-15] MEDS: FAMOTIDINE 20 MG TABLET PO SCH (09:21)
[2019-02-15] MEDS: NICOTINE 21 MG/24 HR PATCH.TD24 TD SCH (09:21)
[2019-02-15] MEDS: PREDNISONE 20 MG TABLET PO SCH (09:21)
[2019-02-15 13:25] VITALS: BP 106/70
--- NOTE | 2019-02-15 18:21 | PDOC DISCHARGE SUMMARY ---
Impression - Admit/DC Date/PCP Admission Date/Primary Care Provider: 02/09/19 17:58 RITA GANT MD Discharge Date: 02/15/19 - Discharge Diagnosis (1) Pulmonary cavitary lesion Is this a current diagnosis for this admission?: Yes (2) Pulmonary TB Is this a current diagnosis for this admission?: Yes (3) Pneumonia Is this a current diagnosis for this admission?: Yes (4) Acute exacerbation of chronic obstructive pulmonary disease (COPD) Is this a current diagnosis for this admission?: Yes (5) Alcohol dependence Is this a current diagnosis for this admission?: Yes - Additional Information Resuscitation Status: Full Code Discharge Diet: As Tolerated, Regular Discharge Activity: Activity As Tolerated, Balance Activity w/Rest Referrals: LEILA GALINDO MD [ACTIVE STAFF] - RITA GANT MD [Primary Care Provider] - ZEN SARMIENTO MD [ACTIVE STAFF] - Prescriptions: Acidoph/L.bulg/Bif.b/S.thermop [Bacid Caplet] 1 tab PO DAILY #21 tablet Clindamycin HCl 300 mg PO TID 21 Days #63 capsule Home Medications: Acetaminophen [Tylenol Extra Strength 500 mg Tablet] 1 tab PO DAILYP PRN 02/10/19 Bupropion HCl [Wellbutrin Sr 150 mg Tablet] 1 tab PO DAILY 02/10/19 Fluticasone/Salmeterol [Fluticasone-Salmeterol 113-14] 1 inh PO BID 02/10/19 Gabapentin 600 mg PO TID 02/10/19 Hydroxyzine HCl [Atarax 50 mg Tablet] 50 mg PO Q6H 02/10/19 Ipratropium [place] [Atrovent 0.06% Nasal Calvin] 1 dose NASL DAILY 02/10/19 Meloxicam [Mobic] 7.5 mg PO DAILY 02/10/19 Olodaterol HCl [Striverdi Respimat] 1 inh PO DAILY 02/10/19 Sumatriptan Succinate [Imitrex 25 mg Tablet] 25 mg PO ASDIR PRN 02/10/19 Tizanidine HCl 4 mg PO BID 02/10/19 Umeclidinium [place] [Incruse Ellipta] 1 inh PO DAILY 02/10/19 Acidoph/L.bulg/Bif.b/S.thermop [Bacid Caplet] 1 tab PO DAILY #21 tablet 02/15/19 Clindamycin HCl 300 mg PO TID 21 Days #63 capsule 02/15/19 History of Present Illiness History of Present Illness: Admitting hospitalist's H&P: ALEXANDRO HUBBARD is a 58 year old male with known history of oxygen dependent COPD who states for the last several weeks he has had complaints of cough, congestion, dyspnea and flank pain in the right. He denies any weight loss although he has had some night sweats intermittently. He denies any hemoptysis. His cough is sometimes productive of clear sputum and he describes his symptoms as mild to moderate. Patient states he did have cavitary lesions last year which tested negative for TB. Patient had no treatment prior to arrival all activities aggravating factor. Hospital Course Hospital Course: This is a 58-year-old male with oxygen dependent COPD who presented with increasing shortness of breath. He was found to have bilateral upper lobe cavitary lesions. He was started on IV antibiotics. He was also started on steroids for COPD exacerbation. 02/11: Assumed care today. Reviewed records from his hospitalization in [place]. He was admitted there in April 2018 and was found to have bilateral upper lobe cavitary lesions. He had a QuantiFERON TB Gold testing which was negative. Pulmonology and infectious disease services were consulted. His symptoms significantly improved. His shortness of breath resolved and returned promptly to his baseline. 02/12: Sputum AFB studies came back positive x3. Patient was empirically started on anti-TB medications. TB sputum PCR was sent. IV antibiotics were also switched to oral per ID recommendations clindamycin as patient does have high risk for aspiration pneumonia from chronic alcoholism and poor dentition. 02/14: Sputum TB PCR came back negative which ruled out TB and suggests non- tubercular mycobacteria causing positive AFB smears. ID does not recommend empiric treatment for likely non-tubercular mycobacterial infection vs colonization. Patient will be discharged on PO clinamycin per ID recommendations. He will closely follow-up with pulmonology. Further recommendations pending final sputum AFB culture results with 2-3 weeks. Patient was given an appointment with new PCP as he just moved to [place] from [place]. He was counseled about alcohol cessation but patient admitted he likely will go back to drinking alcohol after discharge. Physical Exam Vital Signs: Temp Pulse Resp BP Pulse Ox 97.3 F 78 18 106/70 92 02/15/19 13:23 02/15/19 13:23 02/15/19 13:23 02/15/19 13:23 02/15/19 13:23 Intake & Output 02/14/19 02/15/19 02/16/19 06:59 06:59 06:59 Intake Total 1200 480 Output Total 821 Balance -821 1200 480 Weight 139 lb 15.896 oz 139 lb 5.314 oz General appearance: PRESENT: no acute distress, well-developed, well-nourished Head exam: PRESENT: atraumatic, normocephalic Eye exam: PRESENT: conjunctiva pink, EOMI, PERRLA. ABSENT: scleral icterus Ear exam: PRESENT: normal external ear exam Mouth exam: PRESENT: moist, tongue midline Neck exam: ABSENT: carotid bruit, JVD, lymphadenopathy, thyromegaly Respiratory exam: PRESENT: rhonchi. ABSENT: rales, wheezes Cardiovascular exam: PRESENT: RRR. ABSENT: diastolic murmur, rubs, systolic murmur Vascular exam: PRESENT: normal capillary refill GI/Abdominal exam: PRESENT: normal bowel sounds, soft. ABSENT: distended, guarding, mass, organolmegaly, rebound, tenderness Rectal exam: PRESENT: deferred Extremities exam: PRESENT: full ROM. ABSENT: calf tenderness, clubbing, pedal edema Neurological exam: PRESENT: alert, awake, oriented to person, oriented to place, oriented to time, oriented to situation, CN II-XII grossly intact. ABSENT: motor sensory deficit Results Laboratory Results: WBC 8.1 10^3/uL (4.0-10.5) 02/12/19 03:42 RBC 3.70 10^6/uL (4.35-5.55) L 02/12/19 03:42 Hgb 11.3 g/dL (13.5-17.0) L 02/12/19 03:42 Hct 33.7 % (37.9-51.0) L 02/12/19 03:42 MCV 91 fl (80-97) 02/12/19 03:42 MCH 30.5 pg (27.0-33.4) 02/12/19 03:42 MCHC 33.5 g/dL (32.0-36.0) 02/12/19 03:42 RDW 16.8 % (11.5-14.0) H 02/12/19 03:42 Plt Count 365 10^3/uL (150-450) 02/12/19 03:42 Lymph % (Auto) Not Reportable 02/12/19 03:42 Gregg % (Auto) Not Reportable 02/12/19 03:42 Eos % (Auto) Not Reportable 02/12/19 03:42 Baso % (Auto) Not Reportable 02/12/19 03:42 Absolute Neuts (auto) Not Reportable 02/12/19 03:42 Absolute Lymphs (auto) Not Reportable 02/12/19 03:42 Absolute Monos (auto) Not Reportable 02/12/19 03:42 Absolute Eos (auto) Not Reportable 02/12/19 03:42 Absolute Basos (auto) Not Reportable 02/12/19 03:42 Total Counted 100 02/12/19 03:42 Seg Neutrophils % Not Reportable 02/12/19 03:42 Seg Neuts % (Manual) 90 % (42-78) H 02/12/19 03:42 Band Neutrophils % 3 % (3-5) 02/11/19 03:44 Lymphocytes % (Manual) 4 % (13-45) L 02/12/19 03:42 Monocytes % (Manual) 6 % (3-13) 02/12/19 03:42 Eosinophils % (Manual) 0 % (0-6) 02/12/19 03:42 Basophils % (Manual) 0 % (0-2) 02/12/19 03:42 Metamyelocytes % 1 % (0) H 02/10/19 09:52 Abs Neuts (Manual) 7.3 10^3/uL (1.7-8.2) 02/12/19 03:42 Abs Lymphs (Manual) 0.3 10^3/uL (0.5-4.7) L 02/12/19 03:42 Abs Monocytes (Manual) 0.5 10^3/uL (0.1-1.4) 02/12/19 03:42 Absolute Eos (Manual) 0.0 10^3/uL (0.0-0.6) 02/12/19 03:42 Abs Basophils (Manual) 0.0 10^3/uL (0.0-0.2) 02/12/19 03:42 Platelet Comment ADEQUATE 02/12/19 03:42 Anisocytosis 1+ 02/12/19 03:42 Sodium 138.7 mmol/L (137-145) 02/12/19 03:42 Potassium 4.5 mmol/L (3.6-5.0) 02/12/19 03:42 Chloride 103 mmol/L (98-107) 02/12/19 03:42 Carbon Dioxide 29 mmol/L (22-30) 02/12/19 03:42 Anion Gap 7 (5-19) 02/12/19 03:42 BUN 16 mg/dL (7-20) 02/12/19 03:42 Creatinine 0.59 mg/dL (0.52-1.25) 02/12/19 03:42 Est GFR ( Amer) > 60 (>60) 02/12/19 03:42 Est GFR (MDRD) Non-Af > 60 (>60) 02/12/19 03:42 Glucose 106 mg/dL (75-110) 02/12/19 03:42 Calcium 8.5 mg/dL (8.4-10.2) 02/12/19 03:42 Phosphorus 3.3 mg/dL (2.5-4.5) 02/10/19 09:52 Magnesium 2.0 mg/dL (1.6-2.3) 02/10/19 09:52 Total Bilirubin 0.2 mg/dL (0.2-1.3) 02/09/19 14:33 Direct Bilirubin 0.2 mg/dL (0.0-0.4) 02/09/19 14:33 Neonat Total Bilirubin Not Reportable 02/09/19 14:33 Neonat Direct Bilirubin Not Reportable 02/09/19 14:33 Neonat Indirect Bili Not Reportable 02/09/19 14:33 AST 21 U/L (17-59) 02/09/19 14:33 ALT 6 U/L (<50) 02/09/19 14:33 Alkaline Phosphatase 132 U/L (38-126) H 02/09/19 14:33 Total Protein 7.3 g/dL (6.3-8.2) 02/09/19 14:33 Albumin 2.8 g/dL (3.5-5.0) L 02/09/19 14:33 Lipase 33.2 U/L (23-300) 02/09/19 14:33 Urine Color STRAW 02/09/19 13:45 Urine Appearance CLEAR 02/09/19 13:45 Urine pH 6.0 (5.0-9.0) 02/09/19 13:45 Ur Specific [place] 1.002 02/09/19 13:45 Urine Protein NEGATIVE mg/dL (NEGATIVE) 02/09/19 13:45 Urine Glucose (UA) NEGATIVE mg/dL (NEGATIVE) 02/09/19 13:45 Urine Ketones NEGATIVE mg/dL (NEGATIVE) 02/09/19 13:45 Urine Blood NEGATIVE (NEGATIVE) 02/09/19 13:45 Urine Nitrite NEGATIVE (NEGATIVE) 02/09/19 13:45 Urine Bilirubin NEGATIVE (NEGATIVE) 02/09/19 13:45 Urine Urobilinogen NEGATIVE mg/dL (<2.0) 02/09/19 13:45 Ur Leukocyte Esterase NEGATIVE (NEGATIVE) 02/09/19 13:45 Urine Mucus (Auto) RARE /LPF 02/09/19 13:45 Urine Ascorbic Acid NEGATIVE (NEGATIVE) 02/09/19 13:45 CSF Coccidioides Ab ID Cancelled 02/10/19 15:03 CSF Coccidioides Ab CF Cancelled 02/10/19 15:03 Time Trough Drawn 1926 02/11/19 19:26 Vancomycin Trough 16.1 ug/mL (5.0-20.0) 02/11/19 19:26 HIV 1&2 Antibody NEGATIVE (NEGATIVE) 02/09/19 14:33 TB Gold In Tube Comment Comment (.) 02/10/19 09:52 TB Test (QFT) Gold Plus Indeterminate (Negative) H 02/10/19 09:52 TB (QFT) Incubation 02/10/19 09:52 TB Test (QFT) Mitogen 0.03 IU/mL (.) 02/10/19 09:52 TB Test (QFT) Ag 1 0.03 IU/mL (.) 02/10/19 09:52 TB Test (QFT) Ag 2 0.03 IU/mL (.) 02/10/19 09:52 TB Test TB - Nil 0.03 IU/mL (.) 02/10/19 09:52 AFB Smear 1+ ACID FAST BACILLI (NO AFB SEEN) 02/12/19 07:53 Impressions: Chest X-Ray 02/09/19 14:14 IMPRESSION: Markedly abnormal chest film, with air-fluid levels over the right lateral lower hemithorax, either in lung bullae or blebs, or possibly along the major fissure. Cavitation in the bilateral upper lobes. Tuberculosis could not be excluded. Findings called to the emergency room practitioner as above Abdomen Ultrasound 02/09/19 14:16 IMPRESSION: Gallstone. No acute inflammatory changes. No free fluid. Chest/Abdomen CTA 02/09/19 17:15 IMPRESSION: Multiple cavitary lesions, some with air-fluid levels. Mycobacterial disease is a concern given the appearance. Fungal or Bacterial superimposed disease is also a possibility. Malignancy is not excluded. There is diffuse architectural distortion throughout both lungs with bronchiectasis and severe emphysema. No emboli visualized in the main pulmonary arteries or the segmental branches. Stroke Is this a Stroke Patient?: No Acute Heart Failure - Is this a Heart Failure Patient?: No LVEF < 40%?: No- if no continue to question #3
--- NOTE | 2019-02-18 11:15 | Progress Note Acknowledgement ---
Progress Note Acknowledgement Progess Note Acknowledgement: I, the undersigned member of the medical staff with appropriate privileges and with supervisory authority over [Zacarias Ba ], a dependent practice allied health professional, acknowledge that I have reviewed the progress notes entered on this patient, and in my professional judgment believe that the assessment made and/or any care evidenced was appropriate
== END 2019-02-15 13:45 | disposition home or self-care (01) | DRG 206 ==
LOC: ER 13:38 → EH 17:58 → 3N 20:00
PROVIDERS: ADMIT Family Medicine; ATTEND Family Medicine
DX: J98.4 Other disorders of lung (principal); J44.1 Chronic obstructive pulmonary disease with (acute) exacerbation; K92.1 Melena; A15.0 Tuberculosis of lung; J18.9 Pneumonia, unspecified organism; D64.9 Anemia, unspecified; I25.10 Atherosclerotic heart disease of native coronary artery without angina pectoris; R40.0 Somnolence; R13.10 Dysphagia, unspecified; F10.20 Alcohol dependence, uncomplicated; I25.2 Old myocardial infarction; F17.210 Nicotine dependence, cigarettes, uncomplicated; Y90.9 Presence of alcohol in blood, level not specified; Z99.81 Dependence on supplemental oxygen; Z71.6 Tobacco abuse counseling
CPT/HCPCS: 36415; 71046; 71275; 76700; 80048; 80053; 80202; 81001; 83690; 83735; 84100; 85025; 86480; 86635; 86701; 87015; 87040; 87070; 87077; 87101; 87116; 87186; 87205; 87206; 94640; 99285; J1170; J1644; J1956; J2920; J3360; J3370; J3490; J7030; J7060; J7512; J7620